=== PATIENT | male | born 1970 | race Caucasian/White ===

== ENCOUNTER 2017-08-31 06:05 | Emergency (ER) | payer MEDICARE, MEDICAID ==
[~2017-08-31] VITALS: Ht 6206.4 cm; Wt 80.6 kg
[~2017-08-31 06:05] MED LIST: CELE200C PO; DIVA-81 PO; HYDR-3686 PO; LOPE2CAP PO; MIRT45TA6 PO; OMEP20CA10 PO; RISP2TAB97 PO; TERB250T85 PO; [UNRECOGNIZED DRUG - OTHER] INJ
[2017-08-31 06:34] VITALS: BP 126/88
== END 2017-08-31 08:53 | disposition home or self-care (01) ==
LOC: ER 06:06
DX: S60.221A Contusion of right hand, initial encounter (principal); W23.0XXA Caught, crushed, jammed, or pinched between moving objects, initial encounter; Y93.89 Activity, other specified; Y92.89 Other specified places as the place of occurrence of the external cause; Y99.8 Other external cause status
CPT/HCPCS: 73130; 99284

== ENCOUNTER 2018-06-16 19:31 | Emergency (ER) | payer MEDICARE, MEDICAID ==
[~2018-06-16] VITALS: Ht 188 cm; Wt 76.0 kg
[~2018-06-16 19:31] MED LIST changes: -MIRT45TA6 PO; +MIRT45TA83 PO
[2018-06-16 19:37] VITALS: BP 137/89
[2018-06-16] MEDS ORDERED: OMEP40CA37 PO (21:18)
[2018-06-16] MEDS ORDERED: TRIA15CR61 TOP (21:18)
[2018-06-16] MEDS ORDERED: triamcinolone acetonide 40mg/ml inj IM ONE (21:20)
== END 2018-06-16 21:47 | disposition home or self-care (01) ==
LOC: ER 19:31
DX: L40.9 Psoriasis, unspecified (principal); Z76.0 Encounter for issue of repeat prescription; G89.29 Other chronic pain; F15.90 Other stimulant use, unspecified, uncomplicated; Z90.49 Acquired absence of other specified parts of digestive tract; Z88.1 Allergy status to other antibiotic agents; Z88.2 Allergy status to sulfonamides; Z79.899 Other long term (current) drug therapy
CPT/HCPCS: 96372; 99283; J3301

== ENCOUNTER 2018-06-29 17:29 | Emergency (ER) | payer MEDICARE, MEDICAID ==
[~2018-06-29] VITALS: Ht 188 cm; Wt 70.5 kg
[~2018-06-29 17:29] MED LIST changes: +OMEP40CA37 PO; +TRIA15CR61 TOP
[2018-06-29 17:36] VITALS: BP 124/80
[2018-06-29] MEDS ORDERED: TRIA15CR61 TOP (19:00)
[2018-06-29] MEDS ORDERED: famotidine 20mg tablet PO ONE (19:10)
[2018-06-29] MEDS ORDERED: ketorolac tromethamine 15mg/ml inj. IM ONE (19:10)
== END 2018-06-29 20:07 | disposition home or self-care (01) ==
LOC: ER 17:29
DX: L85.3 Xerosis cutis (principal); L40.9 Psoriasis, unspecified; G89.29 Other chronic pain; F15.90 Other stimulant use, unspecified, uncomplicated; Z90.49 Acquired absence of other specified parts of digestive tract; Z60.2 Problems related to living alone; Z59.0 Homelessness; Z88.0 Allergy status to penicillin; Z88.2 Allergy status to sulfonamides; Z88.1 Allergy status to other antibiotic agents; Z79.2 Long term (current) use of antibiotics; Z79.899 Other long term (current) drug therapy
CPT/HCPCS: 96372; 99283; J1885

== ENCOUNTER 2018-09-14 16:58 | Emergency (ER) | payer MEDICARE, MEDICAID ==
[~2018-09-14] VITALS: Ht 185.4 cm; Wt 77.3 kg
[~2018-09-14 16:58] MED LIST changes: -OMEP40CA37 PO; -TRIA15CR61 TOP
[2018-09-14 17:07] VITALS: BP 104/69
--- NOTE | 2018-09-14 17:30 | NUR ---
PT NO IN WR
--- NOTE | 2018-09-14 17:48 | NUR ---
PT NOT IN WR
== END 2018-09-14 19:45 | disposition left against medical advice (07) ==
LOC: ER 16:58
DX: R21 Rash and other nonspecific skin eruption (principal); L98.9 Disorder of the skin and subcutaneous tissue, unspecified; Z53.21 Procedure and treatment not carried out due to patient leaving prior to being seen by health care provider

== ENCOUNTER 2018-12-19 09:48 | Emergency (ER) | payer MEDICARE, MEDICAID ==
[~2018-12-19] VITALS: Ht 188 cm; Wt 74.0 kg
[~2018-12-19 09:48] MED LIST changes: -OMEP20CA10 PO; +OMEP20CA11 PO
[2018-12-19] MEDS ORDERED: CLOB15CR11 TP (10:54)
[2018-12-19] MEDS ORDERED: FLUO15OI2 TP (10:54)
[2018-12-19] MEDS ORDERED: ketorolac tromethamine 15mg/ml inj. IM ONE (10:55)
[2018-12-19 11:34] VITALS: BP 111/75
== END 2018-12-19 11:35 | disposition home or self-care (01) ==
LOC: ER 09:49
DX: L40.9 Psoriasis, unspecified (principal); Z02.89 Encounter for other administrative examinations; R42 Dizziness and giddiness; F15.90 Other stimulant use, unspecified, uncomplicated; G89.29 Other chronic pain; F31.9 Bipolar disorder, unspecified; Z88.1 Allergy status to other antibiotic agents; Z88.2 Allergy status to sulfonamides; Z79.899 Other long term (current) drug therapy; Z59.0 Homelessness; Z60.2 Problems related to living alone
CPT/HCPCS: 96372; 99284; J1885

== ENCOUNTER 2019-01-01 17:44 | Inpatient (IN) | payer MEDICARE, MEDICAID ==
[~2019-01-01] VITALS: Ht 188 cm; Wt 79.5 kg
[~2019-01-01 17:44] MED LIST changes: +CLOB15CR11 TP
[2019-01-01] MEDS ORDERED: HYDROcodone/acetaminophen 10/325mg tab PO ONE (18:45)
--- NOTE | 2019-01-01 18:50 | NUR ---
PT TO XRAY
--- NOTE | 2019-01-01 20:48 | NUR ---
PT IS UP OUT OF BED ON THE NURSES STATIONS PHONE TALKIN WITH HIS GRANDMOTHER ON THE PHONE.
[2019-01-01] MEDS ORDERED: LOSA25TA96 PO (21:39)
[2019-01-01] MEDS ORDERED: QUET150T2 PO (21:39)
[2019-01-01] MEDS ORDERED: OMEP40CA13 PO (21:39)
[2019-01-01] MEDS ORDERED: HYDR-3686 PO (21:39)
[2019-01-01] MEDS ORDERED: BUSP15TA3 PO (21:39)
[2019-01-01] MEDS ORDERED: DIVA-81 PO (21:39)
--- NOTE | 2019-01-01 21:39 | NUR ---
PER PT, PT TOOK NIGHTTIME MEDICATIONS WHILE IN FAST TRACK WITH PRIMARY NURSE. PRIMARY NURSE NO LONGER HERE TO VERIFY OR COMPLETE NOTE.
[2019-01-01] MEDS ORDERED: nicotine 21mg patch - 24 hr TD STA (22:19)
--- NOTE | 2019-01-01 23:07 | NUR ---
PT APPEARS COMFORTABLE ON GURNEY, SO MUCH SO THAT THE ENTIRE ER CAN HEAR HIM SNORING. WILL CONTINUE TO MONITOR
[2019-01-02] MEDS ORDERED: DOXYCYCLINE 100MG CAPSULE PO STA (01:09)
--- NOTE | 2019-01-02 01:32 | NUR ---
PT REFUSED TO GIVE URINE SAMPLE OR PERFORM VISUAL ACUITY TEST. WILL CONTINUE TO MONITOR AND ATTEMPT TO OBTAIN URINE SAMPLE AND
[2019-01-02 02:19] LABS: CLARITY,URINE CLEAR (Clear); COLOR,URINE YELLOW (Yellow); GLUCOSE, URINE NEGATIVE (Neg); KETONES,URINE TRACE mg/dl (Neg); LEUKOCYTE ESTERASE ,URINE NEGATIVE (Neg); NITRITES, URINE NEGATIVE (Neg); OCCULT BLOOD,URINE SMALL (Neg); PH,URINE 5.5 (4.8-8.0); PROTEIN,URINE NEGATIVE (Neg); UA COLLECTION TYPE URINAL; UROBILINOGEN,URINE 0.2 E.U/dL (0.2-1.0)
[2019-01-02 02:35] LABS: BACTERIA,URINE NONE SEEN /HPF (Neg); MUCUS STRANDS NONE SEEN /LPF (Neg); RBC,URINE 0-2 /HPF (0-2); SQUAMOUS EPITHELIAL CELL,UR NONE SEEN /LPF (FEW); WBC,URINE NONE SEEN /HPF (0-4)
[2019-01-02 02:41] LABS: URINE AMPHETAMINE SCREEN POSITIVE (Neg); URINE BARBITUATE SCREEN NEGATIVE (Neg); URINE BENZODIAZEPINES SCREEN NEGATIVE (Neg); URINE CANNABINOID SCREEN POSITIVE (Neg); URINE COCAINE SCREEN NEGATIVE (Neg); URINE METHADONE SCREEN NEGATIVE (Neg); URINE OPIATE SCREEN POSITIVE (Neg); URINE PHENCYCLIDINE SCREEN NEGATIVE (Neg)
[2019-01-02] MEDS ORDERED: magnesium Cl slow-release 64mg tablet PO PRN (06:10)
[2019-01-02] MEDS ORDERED: potassium CL 10mEq/100ml bag 100 ML IV PRN ×2 (06:10)
[2019-01-02] MEDS ORDERED: potassium Cl 20 mEq SR tablet PO PRN ×2 (06:10)
[2019-01-02] MEDS ORDERED: acetaminophen 325mg tablet PO PRN (06:10)
[2019-01-02] MEDS ORDERED: magnesium 4gm in 100ml NS 100 ML IV PRN (06:10)
[2019-01-02] MEDS ORDERED: morphine 2 MG/ML inj. syringe IV PRN (06:10)
[2019-01-02] MEDS ORDERED: magnesium 2GM in 50ml NS 50 ML IV PRN (06:10)
[2019-01-02] MEDS ORDERED: ondansetron/PF 4mg/2ml inj IV PRN (06:10)
--- NOTE | 2019-01-02 06:45 | NUR ---
Patient in room [facility]. I have received report from JULIO CESAR Garcia and had the opportunity to ask questions and assume patient care.
[2019-01-02] MEDS: HYDROcodone/acetaminophen 5mg/325mg tablet PO PRN ×3 (06:49→19:59)
[2019-01-02 07:45] VITALS: BP 107/72
[2019-01-02] MEDS: K and/or MAG REPLACEMENT MC SCH (08:00)
[2019-01-02] MEDS: docusate sod 100mg capsule PO SCH ×2 (09:10→19:58)
[2019-01-02] MEDS ORDERED: CELE-193 PO (10:29)
[2019-01-02] MEDS ORDERED: non-formulary drug (Omeprazole (Prilosec) 1 CAP) PO SCH (12:00)
[2019-01-02] MEDS: losartan 50mg tablet PO SCH (12:07)
[2019-01-02 12:11] VITALS: BP 107/66
[2019-01-02] MEDS ORDERED: magnesium hydroxide 30ml (MOM) UD suspension PO PRN (17:35)
--- NOTE | 2019-01-02 18:25 | NUR ---
Problems reprioritized. Patient report given, questions answered & plan of care reviewed with Jonelle Pearl RN.
--- NOTE | 2019-01-02 18:39 | NUR ---
Patient in room [facility]. I have received report from JULIO CESAR Wolf and had the opportunity to ask questions and assume patient care. Addendum: 01/02/19 at 1840 by Ayana Hoyt RN Amended: Links added.
[2019-01-02 19:00] VITALS: BP 119/78
[2019-01-02] MEDS: divalproex sod 250mg ER (24-hour) tablet PO SCH (19:58)
[2019-01-02] MEDS: busPIRone 15mg tablet PO SCH (19:58)
[2019-01-02] MEDS ORDERED: QUEtiapine 25mg tablet PO SCH (21:00)
[2019-01-02] MEDS ORDERED: QUETIAPINE 150 MG TAB.SR.24H PO SCH (21:00)
[2019-01-03] VITALS: BP 106/64
[2019-01-03 05:16] LABS: BASOPHILS % (AUTO) 0.5 % (0-1); EOSINOPHILS # (AUTO) 0.2 X10'3 (0-0.9); EOSINOPHILS % (AUTO) 3.3 % (0-6); HEMATOCRIT 36.9 % (42.0-52.0); HEMOGLOBIN 12.4 g/dl (14.0-17.9); LYMPHOCYTES # (AUTO) 1.6 X10'3 (1.1-4.8); LYMPHOCYTES % (AUTO) 22.9 % (21-51); MEAN CORPUSCULAR HGB CONC 33.6 g/dL (33.0-36.5); MEAN CORPUSCULAR VOLUME 89.3 FL (78-98); MEAN PLATELET VOLUME 7.4 FL (7.4-10.4); MONOCYTES # (AUTO) 0.5 X10'3 (0-0.9); MONOCYTES % (AUTO) 7.3 % (2-12); NEUTROPHILS # (AUTO) 4.7 X10'3 (1.8-7.7); PLATELET COUNT 352 X10'3 (140-440); RED BLOOD COUNT 4.13 X10'6 (4.70-6.10); RED CELL DISTRIBUTION WIDTH 15.1 % (11.5-14.5); WHITE BLOOD COUNT 7.1 X10'3 (4.5-11.0)
[2019-01-03 05:32] LABS: ALBUMIN 2.7 G/DL (3.4-5.0); ANION GAP 5 (8-16); BLOOD UREA NITROGEN 13 MG/DL (7-18); BUN/CREATININE RATIO 14.6 (5.4-32.0); CALCIUM 8.5 MG/DL (8.5-10.1); CHLORIDE 106 MMOL/L (99-107); CREATININE 0.89 MG/DL (0.60-1.10); GLUCOSE 94 MG/DL (70-104); MAGNESIUM 1.7 MG/DL (1.5-2.4); POTASSIUM 3.9 MMOL/L (3.5-5.1); SODIUM 142 MMOL/L (135-145); TOTAL CARBON DIOXIDE 31.2 MMOL/L (24-32); eGFR > 90 ML/MIN
--- NOTE | 2019-01-03 06:20 | NUR ---
Patient in room [facility]. I have received report from Jonelle Davila RN and had the opportunity to ask questions and assume patient care.
--- NOTE | 2019-01-03 06:30 | NUR ---
Problems reprioritized. Patient report given, questions answered & plan of care reviewed with JULIO CESAR Zavala. Addendum: 01/03/19 at 0631 by Ayana Hoyt RN Amended: Links added.
[2019-01-03 07:14] VITALS: BP 108/74
[2019-01-03] MEDS ORDERED: pantoprazole 40mg Tablet.DR PO SCH (07:30)
[2019-01-03] MEDS: K and/or MAG REPLACEMENT MC SCH (08:00)
[2019-01-03] MEDS: busPIRone 15mg tablet PO SCH (08:34)
[2019-01-03] MEDS: divalproex sod 250mg ER (24-hour) tablet PO SCH (08:34)
[2019-01-03] MEDS: losartan 50mg tablet PO SCH (08:34)
[2019-01-03] MEDS: docusate sod 100mg capsule PO SCH (08:34)
[2019-01-03] MEDS: HYDROcodone/acetaminophen 5mg/325mg tablet PO PRN (08:37)
[2019-01-03 11:52] VITALS: BP 113/65
--- NOTE | 2019-01-03 12:20 | NUR ---
Patient discharged with all belongings. IV taken out. Home meds given back to pt from pharmacy. Tele taken off. W/C to front lobby. Pt to have taxi take him to [facility] paid for by hospital for followup on fractures.
== END 2019-01-03 12:10 | disposition home or self-care (01) | DRG 86 ==
LOC: ER 17:45 → SUR 3N 01-02 06:50
PROVIDERS: ADMIT Internal Medicine; ATTEND Internal Medicine
DX: S02.19XA Other fracture of base of skull, initial encounter for closed fracture (principal); S22.42XA Multiple fractures of ribs, left side, initial encounter for closed fracture; T79.7XXA Traumatic subcutaneous emphysema, initial encounter; S02.31XA Fracture of orbital floor, right side, initial encounter for closed fracture; S02.40CA Maxillary fracture, right side, initial encounter for closed fracture; S02.40EA Zygomatic fracture, right side, initial encounter for closed fracture; S02.2XXA Fracture of nasal bones, initial encounter for closed fracture; F17.210 Nicotine dependence, cigarettes, uncomplicated; F31.9 Bipolar disorder, unspecified; I10 Essential (primary) hypertension; K21.9 Gastro-esophageal reflux disease without esophagitis; K44.9 Diaphragmatic hernia without obstruction or gangrene; Z60.2 Problems related to living alone; F15.10 Other stimulant abuse, uncomplicated; G89.29 Other chronic pain; L40.9 Psoriasis, unspecified; M54.9 Dorsalgia, unspecified; Z79.899 Other long term (current) drug therapy; Z87.19 Personal history of other diseases of the digestive system; Z90.49 Acquired absence of other specified parts of digestive tract; Z88.1 Allergy status to other antibiotic agents; Z88.2 Allergy status to sulfonamides; Z59.0 Homelessness; V29.3XXA Motorcycle rider (driver) (passenger) injured in unspecified nontraffic accident, initial encounter; Y93.89 Activity, other specified; Y92.89 Other specified places as the place of occurrence of the external cause; Y99.8 Other external cause status
CPT/HCPCS: 36415; 70450; 71101; 71250; 72125; 80048; 80305; 81001; 83735; 85025; 87081; 99285; G0378; J2270

== ENCOUNTER 2019-02-01 20:06 | Emergency (ER) | payer MEDICARE, MEDICAID ==
[~2019-02-01] VITALS: Ht 188 cm; Wt 74.0 kg
[~2019-02-01 20:06] MED LIST changes: +BUSP15TA3 PO; +CELE-193 PO; -CELE200C PO; -CLOB15CR11 TP; -LOPE2CAP PO; +LOSA25TA96 PO; -MIRT45TA83 PO; -OMEP20CA11 PO; +OMEP40CA13 PO; +QUET150T2 PO; -RISP2TAB97 PO; -TERB250T85 PO; -[UNRECOGNIZED DRUG - OTHER] INJ
[2019-02-01 20:26] VITALS: BP 143/71
== END 2019-02-01 22:31 | disposition home or self-care (01) ==
LOC: ER 20:07
DX: S90.822A Blister (nonthermal), left foot, initial encounter (principal); S90.821A Blister (nonthermal), right foot, initial encounter; G89.29 Other chronic pain; F15.10 Other stimulant abuse, uncomplicated; Z59.0 Homelessness; Z90.49 Acquired absence of other specified parts of digestive tract; Z88.1 Allergy status to other antibiotic agents; Z88.2 Allergy status to sulfonamides; Z88.8 Allergy status to other drugs, medicaments and biological substances; Z79.899 Other long term (current) drug therapy; X58.XXXA Exposure to other specified factors, initial encounter; Y93.89 Activity, other specified; Y92.89 Other specified places as the place of occurrence of the external cause; Y99.9 Unspecified external cause status
CPT/HCPCS: 99281

== ENCOUNTER 2019-02-06 14:05 | Inpatient (IN) | payer MEDICARE, MEDICAID ==
[~2019-02-06] VITALS: Ht 188 cm; Wt 87.4 kg
[2019-02-06] MEDS ORDERED: magnesium hydroxide 30ml (MOM) UD suspension PO PRN (14:35)
[2019-02-06] MEDS ORDERED: acetaminophen 325mg tablet PO PRN (14:35)
[2019-02-06] MEDS ORDERED: loperamide 2mg capsule PO PRN (14:35)
[2019-02-06] MEDS ORDERED: OMEP-50 PO (15:02)
[2019-02-06] MEDS ORDERED: ARIP5TAB4 PO (15:06)
[2019-02-06 15:17] VITALS: BP 117/71
[2019-02-06] MEDS ORDERED: TRIA454O TOP (15:24)
--- NOTE | 2019-02-06 15:57 | NUR ---
Admit note: Pt is admitted to the unit on a 5150 for DTS and SI. He ambulates himself and is independent for all ADLs. Pt appears to have psoriasis plaques on bilateral elbows, hips, and knees and has a small wound on the pedal aspect of his left foot, by the fifth toe. Photographs were taken of this and of the pedal aspect of the right foot as well as there is a healing wound on the lateral aspect of the foot. All personal items are inventoried by brayan Church, and placed in storage for a safe keeping. Pt is pleasant and cooperative with the assessment with some initial outbursts of foul language and anger. Pt was, however, redirectable and apologized for his behavior. Pt states that he self medicates with "crank" as a "mood stabilizer". He states that it "mellows him out" so he doesn't want to "kill someone". He states that he has been using "every day, sometimes five times a day for the last few months". Pt was positive for meth and marijuana on urine toxicology. Pt is somewhat of a poor historian regarding his current medications and responded with medications he would "like to be on". MRSA swab obtained without incident and sent to lab. During 1:1 assessment and interview, he states that he does not have a history of physical or sexual abuse. He states that his mother was "murdered 10 years ago, and i am going to find the berny who did it and kill him". He states that he does not know about his father and only that "he was a drug dealer". He states that he has a past medical history of arthritis and psoriasis, Bipolar disorder, schizophrenia, "anger-compulsive disorder", sleep apnea and HTN. Pt was oriented to the unit and states that he "just wants to rest". He is resting in bed peacefully on his left side and denies complaints at this time. Will continue to monitor this shift.
[2019-02-06 20:16] VITALS: BP 146/85
[2019-02-06] MEDS: NICOTINE POLACRILEX 2 MG LOZENGE MM PRN (20:40)
[2019-02-06] MEDS: LORazepam 1 MG tablet PO PRN (20:40)
[2019-02-06] MEDS: pantoprazole 40mg Tablet.DR PO SCH (20:40)
[2019-02-06] MEDS: divalproex sod 250mg ER (24-hour) tablet PO SCH (20:41)
[2019-02-06] MEDS: quetiapine 100mg tablet PO SCH (21:13)
--- NOTE | 2019-02-06 23:32 | NUR ---
Nursing Progress Note: Legal hold:5150 Client on voluntary/involuntary status for GD/DTS/DTO: DTS/DTO Report received from nurse with use of SBAR: Sergio HARRELL Why are they here: Pt was admitted to the unit and placed on a 5150 hold for suicidal ideation with a plan to overdose on heroine or cut himself with a knife. Pt states that he self medicates with "crank" as a "mood stabilizer". He states that it "mellows him out" so he doesn't want to "kill someone". He states that he has been using "every day, sometimes five times a day for the last few months". Pt was positive for meth and marijuana on urine toxicology. Assessment What has happened this shift: Pt isolates to his room, when approached he is labile and aggressive with display card writer. He demands certain medications and when display card writer explains what medications he is ordered he calls display card writer the "N word." Pt told he was not allowed to speak to staff this way which he replied yelling, "well I am trying to get help here and I can't even smoke a cigarette so I guess I should just leave here and I will shoot up some heroine into my neck!" Product Representative offered pt nicotine lozenge which he at first threw on the table but then took. Pt talks about hating the police and how they are working with [employer]. He states they are killing homeless people for fun and taking their belongings. Pt states he is hearing voices and display card writer asks what the voices are saying and he responds, "kill, kill, kill!" "I want to fucking kill someone!" Pt continues to curse and have outbursts while eating snack. PT given HS medications along with PRN ativan 1mg. S/I, H/I: "I will shoot heroine into my neck!" "I want to fucking kill someone" A/VH: reports AH Sleep: see sleep assessment notation ADL's: independent Group attendance: attends snack Were meds taken: yes Any med S/E: none reported, none observed Mental Status Exam Appearance: wears own clothing, intense expression Eye contact: direct Behavior:explosive, hostile Speech: pressured, loud Mood: mad, distressed Affect: intimidating, angry Thought process: disorganized at times Thought Content: wanting to hurt himself or others Cognition: poor Insight: poor Judgment:poor Interventions PRN's used: Ativan 1mg, nicotine lozenge Therapeutic interventions: Q15 minute safety checks, verbal deescalation, therapeutic listening, medication education Restraints/seclusion/emergency medication: NA Justification of Continued Inpatient Treatment: Pt is currently stating he is suicidal and homicidal. He has a plan to kill himself by "shooting heroin into my neck." He needs medication stabilization and crisis intervention.
[2019-02-07] MEDS: pantoprazole 40mg Tablet.DR PO SCH ×2 (07:32→20:30)
[2019-02-07] MEDS: losartan 25mg tablet PO SCH (07:32)
[2019-02-07] MEDS: divalproex sod 250mg ER (24-hour) tablet PO SCH ×2 (07:32→20:30)
[2019-02-07] MEDS: nicotine 21mg patch - 24 hr TD SCH (07:33)
[2019-02-07 08:03] LABS: CHOL/HDL RATIO 2.3 (0.00-4.99); CHOLESTEROL 138 MG/DL (0-200); HDL CHOLESTEROL 60 MG/DL (35-60); LDL CHOLESTEROL 69 MG/DL (50-100); TRIGLYCERIDES 73 MG/DL (20-135)
[2019-02-07 08:13] VITALS: BP 96/60
[2019-02-07] MEDS: triamcinolone acetonide 0.1% ointment 15gm TP SCH (08:36)
[2019-02-07] MEDS: LORazepam 1 MG tablet PO PRN ×2 (08:36→20:46)
--- NOTE | 2019-02-07 08:40 | NUR ---
Malnutrition consult. Per documented weight history patient's weight is stable in the last 9 months, no recent weight loss, no edema, eating well, 100% of meals. No malnutrition at this time. Will continue to follow per protocol. Addendum: 02/07/19 at [address] Amended: Links added.
[2019-02-07 08:43] LABS: HEMOGLOBIN A1C 5.3 % (4.5-6.2)
--- NOTE | 2019-02-07 17:00 | NUR ---
Nursing Progress Note: Legal hold:5150 Client on voluntary/involuntary status for GD/DTS/DTO: DTS/DTO Report received from nurse with use of SBAR: JULIO CESAR Shankar Why are they here: Pt was admitted to the unit and placed on a 5150 hold for suicidal ideation with a plan to overdose on heroine or cut himself with a knife. Pt states that he self medicates with "crank" as a "mood stabilizer". He states that it "mellows him out" so he doesn't want to "kill someone". He states that he has been using "every day, sometimes five times a day for the last few months". Pt was positive for meth and marijuana on urine toxicology. Assessment What has happened this shift: Pt isolates to his room and naps the majority of the day. He is cooperative with care and takes his medications without incident. He reports that he is anxious and his feet hurt and PRN tylenol and Ativan are administered with moderate effect. He does not participate in groups, however, he does eat his meals in the community room. He spilled his hot chocolate during breakfast and begins to raise his voice and cuss, however, he asks staff for a towel politely and cleans up the spill. He is seen after lunch ambulating in the thomas and talking on the phone. He asks this RN politely for a snack and this request is accomodated. He denies A/H, V/H, H/I but states "When I leave here I am going to shoot heroin in to my neck and end it" and "Everyone is out to fuck me, no one is helping me". This RN reassured Pt that he is here to get help and this is a safe environment. Pt states "yeah, we'll see about that". Will continue to monitor. S/I, H/I: "I will shoot heroine into my neck or blow my brains out"! A/VH: denies Sleep: naps throughout the day ADL's: independent Group attendance: no Were meds taken: yes Any med S/E: none reported, none observed Mental Status Exam Appearance: wears own clothing, intense expression Eye contact: direct Behavior: guarded, hostile Speech: normal, pressured and loud at times Mood: labile Affect: flat, angry at times Thought process: disorganized at times Thought Content: wanting to hurt himself or others Cognition: poor Insight: poor Judgment:poor Interventions PRN's used: Ativan 1mg, tylenol Therapeutic interventions: Q15 minute safety checks, verbal deescalation, therapeutic listening, medication education Restraints/seclusion/emergency medication: NA Justification of Continued Inpatient Treatment: Pt is currently stating he is suicidal and homicidal. He has a plan to kill himself by "shooting heroin into my neck." He needs medication stabilization and crisis intervention.
[2019-02-07 20:00] VITALS: BP 117/72
[2019-02-07] MEDS: quetiapine 100mg tablet PO SCH (20:30)
[2019-02-07] MEDS: acetaminophen 325mg tablet PO PRN (20:47)
--- NOTE | 2019-02-08 01:43 | NUR ---
NURSING PROGRESS NOTE: Legal hold: 5150 Exp 02/09 @ 1500 Client on involuntary status DTS/DTO Report received from nurse with use of SBAR: Ge RN Why are they here: Pt was admitted to the unit and placed on a 5150 hold for suicidal ideation with a plan to overdose on heroine or cut himself with a knife. Pt states that he self medicates with "crank" as a "mood stabilizer". He states that it "mellows him out" so he doesn't want to "kill someone". He states that he has been using "every day, sometimes five times a day for the last few months". Pt was positive for meth and marijuana on urine toxicology. Assessment What has happened this shift: Pt was in bed with eyes closed at shift change, no distress noted. Pt was seen by hospitalist shortly after, then pt showered. This sign writer letterer or painter introduced self and established rapport, pt presented as slightly agitated, but cooperative. 1:1 assessment was completed at bedside. Pt reports feeling less agitated and hostile. Pt made no hostile remarks during interview or through out shift. Pt however did perseverate on how the production planner are killing the homeless. Pt also states that the "[employer], the copyright expert kids" beat up the homeless and take their belongings. Pt talks about how his mother was murdered. Pt is calm, but a little irritable during conversation. Pt states that he does feel safe here. Pt takes all medications without incident, pt requests Tylenol for bilateral foot pain and and Ativan. Tried to encourage Atarax first, but pt refused. Pt retired to bed after HS snack and is currently sleeping with no distress noted. S/I, H/I: "feeling better, but I still don't want to be here." Pt denies HI, but states they will get what's coming, because that is what we do." A/VH: Pt reports passive AH, but does not elaborate. Sleep: See sleep assessment notation ADL's: Independent Group attendance: No shift manager group, but does attend HS snack. Were meds taken: Medication compliant. Any med S/E: None reported or observed. Mental Status Exam Appearance: Clean, wears own T-shirt and green unit scrubs, showered this shift. Eye contact: Direct Behavior: Cooperative, slightly agitated, perseverating Speech: Clear, normal rate and rhythm Mood: Slightly iritable, but directable Affect: Flat Thought process: Disorganized at times Thought Content: Situational Cognition: Alert Insight: Poor Judgment: Poor Interventions PRN's used: Tylenol, Ativan Therapeutic interventions: 1:1 therapeutic assessment and listening, medication administration/education/monitoring; Q15 min safety checks. Restraints/seclusion/emergency medication: NA Justification of Continued Inpatient Treatment: Pt is currently stating he is suicidal and homicidal. He has a plan to kill himself by "shooting heroin into my neck." He needs medication stabilization and crisis intervention.
[2019-02-08 07:57] VITALS: BP 107/68
[2019-02-08] MEDS: triamcinolone acetonide 0.1% ointment 15gm TP SCH (08:00)
[2019-02-08] MEDS: QUEtiapine 25mg tablet PO SCH ×3 (08:18→17:25)
[2019-02-08] MEDS: pantoprazole 40mg Tablet.DR PO SCH ×2 (08:19→20:44)
[2019-02-08] MEDS: losartan 25mg tablet PO SCH (08:19)
[2019-02-08] MEDS: nicotine 21mg patch - 24 hr TD SCH (08:19)
[2019-02-08] MEDS: divalproex sod 250mg ER (24-hour) tablet PO SCH ×2 (08:19→20:44)
[2019-02-08] MEDS: LORazepam 1 MG tablet PO PRN ×2 (08:25→20:48)
--- NOTE | 2019-02-08 14:18 | NUR ---
[facility] CONTACT Pt signed RAFAEL to allow communication with Probation Department. SW contacted pt's assigned Officer, Romel at [phone], who reports pt is to turn self in to the [facility] for book and release. Romel reports he has placed pt in rehabilitation services 3x in past and pt recently left [facility]. Romel states pt would likely be booked and released if he were to turn himself into the snf within the next couple of days. 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
--- NOTE | 2019-02-08 17:00 | NUR ---
NURSING PROGRESS NOTE: Legal hold: 5150 Exp 02/09 @ 1500 Client on involuntary status DTS/DTO Report received from nurse with use of SBAR: JULIO CESAR Shaknar Why are they here: Pt was admitted to the unit and placed on a 5150 hold for suicidal ideation with a plan to overdose on heroine or cut himself with a knife. Pt states that he self medicates with "crank" as a "mood stabilizer". He states that it "mellows him out" so he doesn't want to "kill someone". He states that he has been using "every day, sometimes five times a day for the last few months". Pt was positive for meth and marijuana on urine toxicology. Assessment What has happened this shift: Pt. asleep at start of shift. Pt. took medications and ate all meals in the day room. 1:1 done at bedside. Pt. is impatient and agitated during assessment. Pt. reports SI without a plan. Pt. reports HI, when asked who he wants to hurt, pt. states, "the people whoe are coming after me". Pt. would not answer further questions. Pt. reports he hears voices but does not elaborate. Pt. is isolative to his room majority of the day. Pt. overheard talking with himself, pt. appears to be responding to internal stimuli. S/I, H/I: Pt. reports SI/HI without plan. When asked about HI, pt. states, "pt. states, people who are hurting people" A/VH: +AH, pt. states, voices tell me to hurt people. RN asked "Who?" Pt. states "my enemies". Pt. does not elaborate on who his enemies are. Sleep: Pt. napped throughout shift. ADL's: Independent Group attendance: No Were meds taken: Medication compliant. Any med S/E: None reported or observed. Mental Status Exam Appearance: Clean, wears own T-shirt and green unit scrubs, showered this shift. Eye contact: Direct Behavior: Cooperative, isolative, perseverating Speech: Clear, normal rate and rhythm Mood: irritable, redirectable Affect: Flat Thought process: Disorganized at times Thought Content: Situational Cognition: Alert Insight: Poor Judgment: Poor Interventions PRN's used: None Therapeutic interventions: 1:1 therapeutic assessment and listening, medication administration/education/monitoring; Q15 min safety checks. Restraints/seclusion/emergency medication: NA Justification of Continued Inpatient Treatment: Pt is currently stating he is suicidal and homicidal. He has a plan to kill himself by "shooting heroin into my neck." He needs medication stabilization and crisis intervention.
[2019-02-08] MEDS: hydrOXYzine 25 MG tablet PO PRN (19:10)
[2019-02-08] MEDS: acetaminophen 325mg tablet PO PRN (19:11)
[2019-02-08 20:00] VITALS: BP 94/58
[2019-02-08] MEDS: quetiapine 100mg tablet PO SCH (20:44)
--- NOTE | 2019-02-09 01:41 | NUR ---
NURSING PROGRESS NOTE: Legal hold: 5150 Exp 02/09 @ 1500 Client on involuntary status DTS/DTO Report received from nurse with use of SBAR: Tiago RN Why are they here: Pt was admitted to the unit and placed on a 5150 hold for suicidal ideation with a plan to overdose on heroine or cut himself with a knife. Pt states that he self medicates with "crank" as a "mood stabilizer". He states that it "mellows him out" so he doesn't want to "kill someone". He states that he has been using "every day, sometimes five times a day for the last few months". Pt was positive for meth and marijuana on urine toxicology. Assessment What has happened this shift: Pt resting in bed at shift change, no acute distress noted. Pt is labile and irritable. [facility] Mikala reported to this typewriter mechanic that pt was using the "N" word and stating "fuck those niggers, everybody is going to ." This typewriter mechanic went in and talked with patient, pt "my fucking feet hurt and nobody cares!" Pt states "I just want to !" Pt became teary-eyed. This typewriter mechanic assessed pt's feet, which are dry and cracked. Pt's feet were soaked in warm, soapy water, clean socks and some skin repair cream. "My feet feel so much better." Pt continues to endorse SI/HI, pt was redirectable this shift. Pt is medication compliant and attends HS snack. Pt is cooperative and calm the remainder of shift and retires to bed after snack. S/I, H/I: "feeling better, but I still don't want to be here." Pt denies HI, but states they will get what's coming, because that is what we do." A/VH: Pt reports passive AH, but does not elaborate. Sleep: See sleep assessment notation ADL's: Independent Group attendance: No production supervisor off shift group, but does attend HS snack. Were meds taken: Medication compliant. Any med S/E: None reported or observed. Mental Status Exam Appearance: Clean, wears own T-shirt and green unit scrubs Eye contact: Direct Behavior: Cooperative, slightly agitated, perseverating Speech: Clear, normal rate and rhythm Mood: Slightly irritable, but directable Affect: Flat Thought process: Disorganized at times Thought Content: Situational Cognition: Alert Insight: Poor Judgment: Poor Interventions PRN's used: Tylenol, Atarax, Ativan Therapeutic interventions: 1:1 therapeutic assessment and listening, medication administration/education/monitoring; Q15 min safety checks. Restraints/seclusion/emergency medication: NA Justification of Continued Inpatient Treatment: Pt is currently stating he is suicidal and homicidal. He has a plan to kill himself by "shooting heroin into my neck." He needs medication stabilization and crisis intervention.
[2019-02-09 06:11] LABS: RPR Non Reactive (Non Reactive)
[2019-02-09 07:04] LABS: HIV ANTIBODY 1&2 RAPID NON-REACTIVE (Neg)
[2019-02-09 07:13] LABS: HBSAG SCREEN Negative (Negative); HEP B CORE AB, IGM Negative (Negative); HEPATITIS C ANTIBODY <0.1 s/co ratio (0.0-0.9)
[2019-02-09 07:41] VITALS: BP 98/63
[2019-02-09] MEDS: divalproex sod 250mg ER (24-hour) tablet PO SCH ×2 (07:53→20:42)
[2019-02-09] MEDS: pantoprazole 40mg Tablet.DR PO SCH ×2 (07:54→20:41)
[2019-02-09] MEDS: QUEtiapine 25mg tablet PO SCH ×3 (07:54→17:29)
[2019-02-09] MEDS: nicotine 21mg patch - 24 hr TD SCH (07:56)
[2019-02-09] MEDS: LORazepam 1 MG tablet PO PRN ×2 (07:58→17:35)
[2019-02-09] MEDS: losartan 25mg tablet PO SCH (08:00)
[2019-02-09] MEDS: triamcinolone acetonide 0.1% ointment 15gm TP SCH (08:00)
[2019-02-09] MEDS: ibuprofen tablet 400 MG TABLET PO PRN ×2 (11:59→17:35)
--- NOTE | 2019-02-09 17:00 | NUR ---
NURSING PROGRESS NOTE: Legal hold: 5250 Client on involuntary status DTS/DTO Report received from nurse with use of SBAR: Sera RN Why are they here: Pt was admitted to the unit and placed on a 5150 hold for suicidal ideation with a plan to overdose on heroine or cut himself with a knife. Pt states that he self medicates with "crank" as a "mood stabilizer". He states that it "mellows him out" so he doesn't want to "kill someone". He states that he has been using "every day, sometimes five times a day for the last few months". Pt was positive for meth and marijuana on urine toxicology. Assessment What has happened this shift: Pt. asleep at start of shift. Pt. woken up for medications and breakfast. Pt. took all meds and all meals in community room. 1:1 done at bedside. Pt. continues to report SI without a plan and auditory hallucinations. Pt. states, the voices tell me, "I'm a piece of shit". Pt. denied wanting to hurt people today. Pt. is irritable and impatient when woken up. Pt. received Ibuprofen for foot and neck pain with good effect. Pt. attended morning group. Pt.'s feet are dry and cracked. RN attempted to do foot care but pt. refused. Pt. served 5250 paper work this evening, pt. responded, "Good, I want to stay here as long as possible". S/I, H/I: Pt. reports SI without a plan. Denies HI. A/VH: Pt. reports hearing voices that belittle him. Sleep: Pt. napped majority of shift. ADL's: Independent Group attendance: Pt. attended AM group. Were meds taken: Yes Any med S/E: None reported or observed. Mental Status Exam Appearance: Clean, wears own T-shirt and green unit scrubs Eye contact: Direct Behavior: Cooperative, agitated, impatient Speech: Clear, normal rate and rhythm Mood: irritable, but directable Affect: Flat Thought process: Disorganized at times Thought Content: Situational Cognition: Alert Insight: Poor Judgment: Poor Interventions PRN's used: Ativan Therapeutic interventions: 1:1 therapeutic assessment and listening, medication administration/education/monitoring; Q15 min safety checks. Restraints/seclusion/emergency medication: NA Justification of Continued Inpatient Treatment: Pt is currently stating he is suicidal and homicidal. He has a plan to kill himself by "shooting heroin into my neck." He needs medication stabilization and crisis intervention.
[2019-02-09 19:00] VITALS: BP 105/67
[2019-02-09] MEDS: quetiapine 100mg tablet PO SCH (20:42)
[2019-02-09] MEDS: hydrOXYzine 25 MG tablet PO PRN (20:42)
--- NOTE | 2019-02-10 02:46 | NUR ---
NURSING PROGRESS NOTE: Legal hold: 5250 Exp 02/23 @ 1500 Client on involuntary status DTS/DTO Report received from nurse with use of SBAR: Paula RN Why are they here: Pt was admitted to the unit and placed on a 5150 hold for suicidal ideation with a plan to overdose on heroine or cut himself with a knife. Pt states that he self medicates with "crank" as a "mood stabilizer". He states that it "mellows him out" so he doesn't want to "kill someone". He states that he has been using "every day, sometimes five times a day for the last few months". Pt was positive for meth and marijuana on urine toxicology. Assessment What has happened this shift: Pt sleeping in his room at shift change no acute distress noted. Pt is cooperative with vitals and 1:1 assessment. Pt's mood is improving, pt is less labile. Pt apologizes for his attitude the last couple of days. Pt passive SI, but has no plan. Pt continues to report derogatory AH. Pt remained in bed all of shift, "I am feeling real tired." Pt is up HS snack then returns to bed. S/I, H/I: Passive SI, without a plan. Denies H/I A/VH: Pt reports derogatory voices. Sleep: See sleep assessment notation ADL's: Independent Group attendance: No manufacturing shift supervisor group, but does attend HS snack. Were meds taken: Medication compliant. Any med S/E: None reported or observed. Mental Status Exam Appearance: Clean, wears own T-shirt and green unit scrubs Eye contact: Direct Behavior: Cooperative, sleepy, in bed all of shift Speech: Clear, normal rate and rhythm Mood: Improvising, less labile Affect: Flat Thought process: Disorganized at times Thought Content: Situational Cognition: Alert Insight: Poor Judgment: Poor Interventions PRN's used: Atarax Therapeutic interventions: 1:1 therapeutic assessment and listening, medication administration/education/monitoring; Q15 min safety checks. Restraints/seclusion/emergency medication: NA Justification of Continued Inpatient Treatment: Pt is depressed and DTS requiring medication management and a therapeutic milieu to interrupt current crisis.
[2019-02-10 08:00] VITALS: BP 94/58
[2019-02-10] MEDS: triamcinolone acetonide 0.1% ointment 15gm TP SCH (08:00)
[2019-02-10] MEDS: losartan 25mg tablet PO SCH (08:00)
[2019-02-10] MEDS: pantoprazole 40mg Tablet.DR PO SCH ×2 (08:03→20:57)
[2019-02-10] MEDS: nicotine 21mg patch - 24 hr TD SCH (08:03)
[2019-02-10] MEDS: divalproex sod 250mg ER (24-hour) tablet PO SCH ×2 (08:05→20:57)
[2019-02-10] MEDS: QUEtiapine 25mg tablet PO SCH ×3 (08:06→17:16)
[2019-02-10] MEDS: LORazepam 1 MG tablet PO PRN ×2 (08:30→17:20)
[2019-02-10] MEDS: ibuprofen tablet 400 MG TABLET PO PRN ×2 (08:30→20:58)
[2019-02-10] MEDS: hydrOXYzine 25 MG tablet PO PRN ×2 (12:39→20:57)
--- NOTE | 2019-02-10 17:00 | NUR ---
NURSING PROGRESS NOTE: Legal hold: 525 Exp 02/23 @ 1500 Client on involuntary status DTS/DTO Report received from nurse with use of SBAR: Emmanuelle Morley RN Why are they here: Pt was admitted to the unit and placed on a 5150 hold for suicidal ideation with a plan to overdose on heroine or cut himself with a knife. Pt states that he self medicates with "crank" as a "mood stabilizer". He states that it "mellows him out" so he doesn't want to "kill someone". He states that he has been using "every day, sometimes five times a day for the last few months". Pt was positive for meth and marijuana on urine toxicology. Assessment What has happened this shift: Pt. asleep at start of shift. Pt. took all medications and ate all meals in the community room. 1:1 assessment done at bedside. Pt. reports anxiety 01/06, depression /, SI without a plan, +AH that tell him he is worthless. Pt. refused to go to AM group, pt. states, "I can't go to group, I'm struggling with too many things right now". Pt. given Ativan for anxiety with good effect. Pt. given Ibuprofen for 810 foot pain with good effect. Pt.'s feet assessed, no S&S of infection. Pt. encouraged to keep proper hygeine. Pt. given Ativan inafternoon with good effect. Pt. given Ibuprofen for foot pain with gooed effect. Pt. less isolative today, seen out in community room socializing with other patients. S/I, H/I: Passive SI, without a plan. Denies H/I A/VH: Pt reports derogatory voices. Sleep: Pt. napped frequently on AM shift. ADL's: Independent Group attendance: No. Pt. encouraged to attend, pt. reports that he has too many worries to participate in group. Were meds taken: Medication compliant. Any med S/E: None reported or observed. Mental Status Exam Appearance: Clean, wears own T-shirt and green unit scrubs Eye contact: Direct Behavior: Cooperative, anxious, isolative Speech: Clear, normal rate and rhythm Mood: anxious Affect: Flat Thought process: disoragnized at times Thought Content: Situational Cognition: Alert Insight: Poor Judgment: Poor Interventions PRN's used: Ativan, Atarax, Ibuprofen Therapeutic interventions: 1:1 therapeutic assessment and listening, medication administration/education/monitoring; Q15 min safety checks. Restraints/seclusion/emergency medication: NA Justification of Continued Inpatient Treatment: Pt is depressed and DTS requiring medication management and a therapeutic milieu to interrupt current crisis.
[2019-02-10 19:00] VITALS: BP 92/44
[2019-02-10] MEDS: quetiapine 100mg tablet PO SCH (20:57)
--- NOTE | 2019-02-10 23:28 | NUR ---
NURSING PROGRESS NOTE: Legal hold: 5250 Exp 02/23 @ 1500 Client on involuntary status DTS/DTO Report received from nurse with use of SBAR: JOSE RAFAEL Mitchell Why are they here: Pt was admitted to the unit and placed on a 5150 hold for suicidal ideation with a plan to overdose on heroine or cut himself with a knife. Pt states that he self medicates with "crank" as a "mood stabilizer". He states that it "mellows him out" so he doesn't want to "kill someone". He states that he has been using "every day, sometimes five times a day for the last few months". Pt was positive for meth and marijuana on urine toxicology. Assessment What has happened this shift: Pt. asleep at start of shift. Woke up for snack. Pt. took all medications and ate all meals in the community room socializing with other patients. 1:1 assessment done at bedside. Pt. reports anxiety 01/06, depression 02/06, SI plan is to overdose on Heroin. ,+AH that tell him he is worthless. Pt. given Ibuprofen for 810 foot pain with good effect. Given Atarax per request for c/o anxiety. Pt. less isolative today, seen out in community room S/I, H/I: Passive SI, Plan OD on heroin. Denies H/I A/VH: Pt reports derogatory voices. Sleep: Asleep at this time. ADL's: Independent Group attendance: NA, up to group room for snack. Were meds taken: Medication compliant. Any med S/E: None reported or observed. Mental Status Exam Appearance: Clean, wears own T-shirt and green unit scrubs Eye contact: Direct Behavior: Cooperative Speech: Clear, normal rate and rhythm Mood: anxious per pt Affect: Flat Thought process: disorganized at times Thought Content: Wants to get Zanax and Klonopin ordered Cognition: Alert Insight: Poor Judgment: Poor Interventions PRN's used: Ativan, Atarax, Ibuprofen Therapeutic interventions: 1:1 therapeutic assessment and listening, medication administration/education/monitoring; Q15 min safety checks. Restraints/seclusion/emergency medication: NA Justification of Continued Inpatient Treatment: Pt is depressed and DTS requiring medication management and a therapeutic milieu to interrupt current crisis.
[2019-02-11] MEDS: hydrOXYzine 25 MG tablet PO PRN ×2 (03:48→16:55)
[2019-02-11 07:54] VITALS: BP 104/55
[2019-02-11] MEDS: divalproex sod 250mg ER (24-hour) tablet PO SCH ×2 (08:38→20:39)
[2019-02-11] MEDS: pantoprazole 40mg Tablet.DR PO SCH ×2 (08:38→20:38)
[2019-02-11] MEDS: QUEtiapine 25mg tablet PO SCH ×3 (08:38→16:54)
[2019-02-11] MEDS: losartan 25mg tablet PO SCH (08:38)
[2019-02-11] MEDS: nicotine 21mg patch - 24 hr TD SCH (08:39)
[2019-02-11] MEDS: triamcinolone acetonide 0.1% ointment 15gm TP SCH (08:40)
--- NOTE | 2019-02-11 09:34 | NUR ---
Initial: Pt PO 100% meals meeting needs. LBM 02/10. No nutrition concerns at this time. Recommend: 1. continue regular diet 2. continue bowel care 3. Weight per rx Addendum: 02/11/19 at [address] Amended: Links added.
--- NOTE | 2019-02-11 16:20 | NUR ---
NURSING PROGRESS NOTE: Legal hold: 5250 Client on involuntary status DTS/DTO Report received from nurse with use of SBAR: Sobeida Morley RN Why are they here: Pt was admitted to the unit and placed on a 5150 hold for suicidal ideation with a plan to overdose on heroine or cut himself with a knife. Pt states that he self medicates with "crank" as a "mood stabilizer". He states that it "mellows him out" so he doesn't want to "kill someone". He states that he has been using "every day, sometimes five times a day for the last few months". Pt was positive for meth and marijuana on urine toxicology. Assessment What has happened this shift: Pt. asleep at start of shift. Pt. took medications and ate all meals in the day room. 1:1 done at bedside. Pt. is impatient and agitated during assessment. Pt. reports SI without a plan. Pt. reports HI, when asked who he wants to hurt, pt. states, "the people who are coming after me". Pt. went on to speak in coded style that "You learn inside. The shot callers want to hurt him because they think I ratted someone out. Then I put a hit out on someone and ended up being debriefed." When asked to explain the references he was using, pt. became frustrated and said he was done talking. Pt. reports he hears voices but does not elaborate. Pt. is isolative to his room majority of the day. Pt. overheard talking with himself, pt. appears to be responding to internal stimuli. S/I, H/I: Pt. reports SI/HI without plan. When asked about HI, pt. states, "people who are hurting people" A/VH: +AH, pt. states, voices tell me to hurt people. RN asked "Who?" Pt. states "my enemies". Pt. does not elaborate on who his enemies are. Sleep: Pt. napped throughout shift. ADL's: Independent. Showered today. Group attendance: No Were meds taken: Medication compliant. Any med S/E: None reported or observed. Mental Status Exam Appearance: Clean. Eye contact: Direct Behavior: Cooperative, isolative, perseverating Speech: Clear, normal rate and rhythm Mood: irritable, redirectable Affect: Flat, Angers easily secondary to impatience Thought process: Disorganized at times Thought Content: Situational Cognition: Alert Insight: Poor Judgment: Poor Interventions PRN's used: None Therapeutic interventions: 1:1 therapeutic assessment and listening, medication administration/education/monitoring; Q15 min safety checks. Restraints/seclusion/emergency medication: NA Justification of Continued Inpatient Treatment: Pt is currently stating he is suicidal and homicidal. He has a plan to kill himself by "shooting heroin into my neck." He needs medication stabilization and crisis intervention.
[2019-02-11] MEDS ORDERED: quetiapine 100mg tablet PO ONE (19:35)
[2019-02-11] MEDS: ibuprofen tablet 400 MG TABLET PO PRN (19:55)
[2019-02-11 19:57] VITALS: BP 137/83
[2019-02-11] MEDS: quetiapine 100mg tablet PO SCH (20:38)
--- NOTE | 2019-02-11 22:17 | NUR ---
NURSING PROGRESS NOTE: Legal hold: 5250 Client on involuntary status DTS/DTO Report received from nurse with use of SBAR: JOSE RAFAEL Mitchell Why are they here: Pt was admitted to the unit and placed on a 5150 hold for suicidal ideation with a plan to overdose on heroine or cut himself with a knife. Pt states that he self medicates with "crank" as a "mood stabilizer". He states that it "mellows him out" so he doesn't want to "kill someone". He states that he has been using "every day, sometimes five times a day for the last few months". Pt was positive for meth and marijuana on urine toxicology. Assessment What has happened this shift: Pt. awake up in group room at start of shift. Pt agitated verbalizing frustration about his medications. "They took away my Ativan I need something for Anxiety." Clifford Omer ordered x1 100 mg Seroquel and increased HS dose. Pt. took medications. Pt continued to verbalize anger. Pt. impatient and agitated during assessment. Reported SI did not mention a plan. Pt talked at length to Grandmother on the phone able to calm self down and go to bed. S/I, H/I: Pt. reports SI/HI without plan. When asked about HI, pt. states, "people who are hurting people" A/VH: +AH, pt. vague about voices Sleep: Asleep at this time ADL's: Independent. Showered today. Group attendance: No Were meds taken: Medication compliant. Any med S/E: None reported or observed. Mental Status Exam Appearance: Clean. Eye contact: Direct Behavior: Agitated, cooperative Speech: Clear, normal rate and rhythm Mood: irritable, redirectable Affect: Flat, Angers easily secondary to impatience Thought process: Disorganized at times Thought Content: Situational Cognition: Alert Insight: Poor Judgment: Poor Interventions PRN's used: None Therapeutic interventions: 1:1 therapeutic assessment and listening, medication administration/education/monitoring; Q15 min safety checks. Restraints/seclusion/emergency medication: NA Justification of Continued Inpatient Treatment: Pt is currently stating he is suicidal and homicidal. He has a plan to kill himself by "shooting heroin into my neck." He needs medication stabilization and crisis intervention.
[2019-02-12] MEDS ORDERED: QUEtiapine 25mg tablet PO SCH (07:00)
[2019-02-12] MEDS: hydrOXYzine 25 MG tablet PO PRN (07:45)
[2019-02-12] MEDS: pantoprazole 40mg Tablet.DR PO SCH ×2 (07:45→21:01)
[2019-02-12] MEDS: losartan 25mg tablet PO SCH (07:45)
[2019-02-12] MEDS: nicotine 21mg patch - 24 hr TD SCH (07:46)
[2019-02-12] MEDS: divalproex sod 250mg ER (24-hour) tablet PO SCH ×2 (07:51→21:01)
[2019-02-12 08:00] VITALS: BP 103/68
[2019-02-12] MEDS: triamcinolone acetonide 0.1% ointment 15gm TP SCH (08:00)
[2019-02-12] MEDS ORDERED: clonazePAM 0.5mg tablet PO ONE (12:45)
[2019-02-12] MEDS ORDERED: celeCOXIB 100mg capsule PO ONE (12:55)
--- NOTE | 2019-02-12 18:02 | NUR ---
NURSING PROGRESS NOTE: Legal hold: 5250 Client on involuntary status DTS/DTO Report received from nurse with use of SBAR: JULIO CESAR Siegel Why are they here: Pt was admitted to the unit and placed on a 5150 hold for suicidal ideation with a plan to overdose on heroine or cut himself with a knife. Pt states that he self medicates with "crank" as a "mood stabilizer". He states that it "mellows him out" so he doesn't want to "kill someone". He states that he has been using "every day, sometimes five times a day for the last few months". Pt was positive for meth and marijuana on urine toxicology. Assessment What has happened this shift: Pt. asleep at start of shift. Pt. took medications and ate all meals in the community room without event. Repeated his concerns of yesterday "that I'm crawling out of my skin." Spoke at length with Dr. Em today and medication changes made. Patient expressed relief "that I'm finally getting the medications that will work for me." Maintained a low profile throughout the day. Continues to state "I wish I could . I have nothing to live for. I try to think of a reason to live but I've got none." Believes "once I get back on the street I'm a man." S/I, H/I: Pt. reports SI/HI without plan. When asked about HI, pt. states, "people who are hurting people" A/VH: +AH, pt. states, voices tell me to hurt people. RN asked "Who?" Pt. states "my enemies". Pt. does not elaborate on who his enemies are. Sleep: Pt. napped throughout shift. ADL's: Independent. Showered today. Group attendance: No Were meds taken: Medication compliant. Any med S/E: None reported or observed. Mental Status Exam Appearance: Clean. Eye contact: Direct Behavior: Cooperative, isolative, perseverating Speech: Clear, normal rate and rhythm Mood: irritable, redirectable Affect: Flat, Angers easily secondary to impatience Thought process: Disorganized at times Thought Content: Situational Cognition: Alert Insight: Poor Judgment: Poor Interventions PRN's used: None Therapeutic interventions: 1:1 therapeutic assessment and listening, medication administration/education/monitoring; Q15 min safety checks. Restraints/seclusion/emergency medication: NA Justification of Continued Inpatient Treatment: Pt is currently stating he is suicidal and homicidal. He has a plan to kill himself by "shooting heroin into my neck." He needs medication stabilization and crisis intervention.
[2019-02-12] MEDS ORDERED: tuberculin, purif. prot. deriv. 5 units/0.1ml ID ONE (19:55)
[2019-02-12 20:00] VITALS: BP 137/83
--- NOTE | 2019-02-12 20:30 | NUR ---
EMERGENCY CONTACT: Pt requested that his Grandmother Haley Abdi be listed as an Emergency contact .
[2019-02-12] MEDS: quetiapine 100mg tablet PO SCH (21:00)
[2019-02-12] MEDS: hydrOXYzine 25 MG tablet PO SCH (21:01)
[2019-02-12] MEDS: clonazePAM 0.5mg tablet PO SCH (21:02)
--- NOTE | 2019-02-12 23:12 | NUR ---
NURSING PROGRESS NOTE: Legal hold: 5250 Client on involuntary status DTS/DTO Report received from nurse with use of SBAR: Lory HARRELL Why are they here: Pt was admitted to the unit and placed on a 5150 hold for suicidal ideation with a plan to overdose on heroine or cut himself with a knife. Pt states that he self medicates with "crank" as a "mood stabilizer". He states that it "mellows him out" so he doesn't want to "kill someone". He states that he has been using "every day, sometimes five times a day for the last few months". Pt was positive for meth and marijuana on urine toxicology. Assessment What has happened this shift: Pt. Talking on phone at start of shift. In Group room interacting with other pts. Pt is popular on unit with other pts. Pt calm and cooperative with care. Educated on new med orders pt verbalized understanding. Pt concerned that he get a PPD before his associate doctor would order his medication for psoriasis. PPD Placed at 21:30. Pt also talking about need to call accounting officer to let him know he is still in here because he has a warrant. Pt thinking logical and linear and future oriented. S/I, H/I: Pt. reports SI/HI without plan. Sleep: Asleep at this time ADL's: Independent. Showered today. Group attendance: No Were meds taken: Medication compliant. Any med S/E: None reported or observed. Mental Status Exam Appearance: Clean. Eye contact: Direct Behavior: Cooperative Speech: Clear, normal rate and rhythm Mood: Pleasant cooperative Affect: Flat, Angers easily secondary to impatience Thought process: Linear Thought Content: Psoriasis medications and arrest Warrant Cognition: Alert Insight: Poor Judgment: Poor Interventions PRN's used: None Therapeutic interventions: 1:1 therapeutic assessment and listening, medication administration/education/monitoring; Q15 min safety checks. Restraints/seclusion/emergency medication: NA Justification of Continued Inpatient Treatment: Pt is currently stating he is suicidal He needs medication stabilization and crisis intervention.
[2019-02-13 08:00] VITALS: BP 120/78
[2019-02-13] MEDS: divalproex sod 250mg ER (24-hour) tablet PO SCH ×2 (08:30→20:18)
[2019-02-13] MEDS: clonazePAM 0.5mg tablet PO SCH ×2 (08:30→20:17)
[2019-02-13] MEDS: quetiapine 100mg tablet PO SCH ×2 (08:30→20:18)
[2019-02-13] MEDS: pantoprazole 40mg Tablet.DR PO SCH ×2 (08:30→20:18)
[2019-02-13] MEDS: losartan 25mg tablet PO SCH (08:31)
[2019-02-13] MEDS: celeCOXIB 100mg capsule PO SCH (08:31)
[2019-02-13] MEDS: nicotine 21mg patch - 24 hr TD SCH (08:35)
[2019-02-13] MEDS: triamcinolone acetonide 0.1% ointment 15gm TP SCH (09:45)
[2019-02-13] MEDS: hydrOXYzine 25 MG tablet PO PRN (12:52)
--- NOTE | 2019-02-13 13:52 | NUR ---
NURSING PROGRESS NOTE: Legal hold: 525 Exp 02/23 @ 1500 Client on involuntary status DTS Report received from nurse with use of SBAR: JULIO CESAR Shankar Why are they here: Pt was admitted to the unit and placed on a 5150 hold for suicidal ideation with a plan to overdose on heroine or cut himself with a knife. Pt states that he self medicates with "crank" as a "mood stabilizer". He states that it "mellows him out" so he doesn't want to "kill someone". He states that he has been using "every day, sometimes five times a day for the last few months". Pt was positive for meth and marijuana on urine toxicology. Assessment What has happened this shift: Pt rates his depression today at a 12/10, states that he doesn't want to be here anymore, endorses SI, states that he would try to kill himself but there's no way here. Pt was initially pleasant in the morning but became anxious and mildly agitated later in the shift. Given prn Atarax 50 mg at 1252. 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 Pt stated that he would rather go to halfway but then stated that when he gets out of he is not going to turn himself in, "let them find me." Pt then stated that he would run to another state. When asked if pt hears voices, he answered that yes he does, states the voices, "tell me to kill him...I got demons in my head." S/I, H/I: Passive SI and HI, no plan here A/VH: Pt reports command AH to kill people and that he has demons in his head, pt denies VH. Sleep: Slept 7.75 hours per noc shift report ADL's: Independent Group attendance: Yes Were meds taken: Yes Any med S/E: None noted or reported Mental Status Exam Appearance: Clean, edentulous Eye contact: Fair to good. Behavior: restless but cooperative Speech: Clear, normal rate and rhythm Mood: irritable, anxious, depressed, angry Affect: irritable Thought process: Paranoid, perseverative, ruminates Thought Content: perseverates on wanting to do crank and on medical office rep and their children going after homeless people, spoke of homeless friends being assassinated and women being raped by medical office rep/medical office rep' children. Cognition: A/O X 4 Insight: Poor Judgment: Poor Interventions PRN's used: Atarax 50 mg Therapeutic interventions: 1:1 assessment, active listening, positive reinforcement, medication administration/education/monitoring, Q15 min safety checks. Restraints/seclusion/emergency medication: N/A Justification of Continued Inpatient Treatment: Pt is depressed, has CAH to kill people, and is endorsing SI, he needs further crisis interruption and medication adjustment for pt safety and to prevent readmission.
[2019-02-13 20:12] VITALS: BP 110/72
[2019-02-13] MEDS: hydrOXYzine 25 MG tablet PO SCH (20:17)
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
[2019-02-14] MEDS: mag hydrox/Alum hydrox/simeth 30ml oral suspension PO PRN (03:53)
[2019-02-14] MEDS: losartan 25mg tablet PO SCH (07:48)
[2019-02-14] MEDS: pantoprazole 40mg Tablet.DR PO SCH ×2 (07:48→20:20)
[2019-02-14] MEDS: celeCOXIB 100mg capsule PO SCH (07:49)
[2019-02-14] MEDS: clonazePAM 0.5mg tablet PO SCH ×2 (07:49→20:21)
[2019-02-14] MEDS: triamcinolone acetonide 0.1% ointment 15gm TP SCH (07:49)
[2019-02-14] MEDS: quetiapine 100mg tablet PO SCH ×2 (07:49→20:21)
[2019-02-14] MEDS: nicotine 21mg patch - 24 hr TD SCH (07:52)
[2019-02-14] MEDS: hydrOXYzine 25 MG tablet PO PRN ×3 (07:54→22:21)
[2019-02-14 08:00] VITALS: BP 110/69
[2019-02-14] MEDS: divalproex sod 250mg ER (24-hour) tablet PO SCH ×2 (08:21→20:20)
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
[2019-02-14] MEDS: NICOTINE POLACRILEX 2 MG LOZENGE MM PRN ×2 (15:18→21:08)
[2019-02-14 19:51] VITALS: BP 107/64
[2019-02-14] MEDS: hydrOXYzine 25 MG tablet PO SCH (20:20)
[2019-02-14] MEDS: carbamide peroxide 15ml bottle EACH EAR SCH (21:36)
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
[2019-02-15] MEDS: celeCOXIB 100mg capsule PO SCH (07:48)
[2019-02-15] MEDS: quetiapine 100mg tablet PO SCH ×2 (07:48→20:22)
[2019-02-15] MEDS: divalproex sod 250mg ER (24-hour) tablet PO SCH ×2 (07:49→20:22)
[2019-02-15] MEDS: pantoprazole 40mg Tablet.DR PO SCH ×2 (07:50→20:22)
[2019-02-15] MEDS: clonazePAM 0.5mg tablet PO SCH ×2 (07:50→20:23)
[2019-02-15 07:53] VITALS: BP 103/62
[2019-02-15] MEDS: nicotine 21mg patch - 24 hr TD SCH (07:53)
[2019-02-15] MEDS: carbamide peroxide 15ml bottle EACH EAR SCH ×2 (07:57→20:00)
[2019-02-15] MEDS: hydrOXYzine 25 MG tablet PO PRN ×2 (07:57→15:53)
[2019-02-15] MEDS: triamcinolone acetonide 0.1% ointment 15gm TP SCH (08:01)
[2019-02-15] MEDS: NICOTINE POLACRILEX 2 MG LOZENGE MM PRN ×2 (13:32→20:03)
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
--- NOTE | 2019-02-15 19:46 | NUR ---
[facility] REFERRAL: SW completed [facility] referral for pt and left on desk for signatures from treating provider and patient. Referral will need to be faxed to [facility] and [facility] office once signed. [facility] fax: [phone]/ [facility]: [phone] Ayana Lan, Dental Equipment Repairer CATALOGUE LIBRARIAN [id number] Supervised by Robinson Yuan, [id number]
[2019-02-15 20:00] VITALS: BP 119/67
[2019-02-15] MEDS: hydrOXYzine 25 MG tablet PO SCH (20:23)
--- NOTE | 2019-02-16 05:01 | NUR ---
Nursing Progress Note: Legal hold: 5250 Exp 02/23 @ 1500 Client on involuntary status DTS Report received from nurse with use of SBAR: JULIO CESAR [place] Why are they here: Pt was admitted to the unit and placed on a 5150 hold for suicidal ideation with a plan to overdose on heroine or cut himself with a knife. Pt states that he self medicates with "crank" as a "mood stabilizer". He states that it "mellows him out" so he doesn't want to "kill someone". He states that he has been using "every day, sometimes five times a day for the last few months". Pt was positive for meth and marijuana on urine toxicology. Assessment What has happened this shift: Patient laying on his bed at the beginning of the shift reading a book. Patient received a phone call from his grandmother and became agitated during the phone call. Patient ended the phone call to calm himself and remained in his bedroom. Patient explained to this commercial loan underwriter he wants to change his ways and not be so hostile but its difficult when he's being "drilled." After calming down patient called his grandmother back and apologized and claimed to have had a pleasant conversation. Patient brought up during his med pass that he recently had broken facial bones pointing below his eye and asked to have a doctor further examine as he claims to see a solid vertical line occasionally. Patient has remained in his room the remainder of this shift. S/I, H/I: denies A/VH:denies Sleep: asleep at this time ADL's: Independent Group attendance: No groups this shift Were meds taken: Yes Any med S/E: None observed or reported Mental Status Exam Appearance: Clean, edentulous Eye contact: Fair to good. Behavior: easily frustrated though cooperative Speech: Clear, normal rate and rhythm Mood: anxious, depressed, irritable Affect: agitated Thought process: perseverative, preoccupied Thought Content: changing behavior Cognition: A/O X 4 Insight: Poor Judgment: Poor Interventions PRN's used: nicotine lozenge Therapeutic interventions: 1:1 assessment, active listening, therapeutic conversation, verbal de-escalation, redirection, positive reinforcement, medication administration/education/monitoring, pictures/documentation of areas of skin affected by psoriasis, Q15 min safety checks. Restraints/seclusion/emergency medication: N/A Justification of Continued Inpatient Treatment: Pt is anxious, easily frustrated, and depressed with SI. He needs further crisis interruption and medication adjustment for pt safety and to prevent readmission.
[2019-02-16] MEDS: divalproex sod 250mg ER (24-hour) tablet PO SCH ×2 (07:38→21:27)
[2019-02-16] MEDS: celeCOXIB 100mg capsule PO SCH (07:38)
[2019-02-16] MEDS: clonazePAM 1mg tablet PO SCH (07:38)
[2019-02-16] MEDS: pantoprazole 40mg Tablet.DR PO SCH ×2 (07:39→21:27)
[2019-02-16] MEDS: quetiapine 100mg tablet PO SCH ×2 (07:39→21:28)
[2019-02-16] MEDS: carbamide peroxide 15ml bottle EACH EAR SCH ×2 (07:40→20:00)
[2019-02-16] MEDS: nicotine 21mg patch - 24 hr TD SCH (07:40)
[2019-02-16] MEDS: hydrOXYzine 25 MG tablet PO PRN ×2 (08:13→15:46)
[2019-02-16 08:18] VITALS: BP 104/65
[2019-02-16] MEDS: triamcinolone acetonide 0.1% ointment 15gm TP SCH (10:46)
--- NOTE | 2019-02-16 15:06 | NUR ---
DISCHARGE PLANNING: DENIED BY [facility].
[2019-02-16] MEDS: NICOTINE POLACRILEX 2 MG LOZENGE MM PRN (15:46)
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
[2019-02-16] MEDS: acetaminophen 325mg tablet PO PRN (19:13)
[2019-02-16] MEDS: ibuprofen tablet 400 MG TABLET PO PRN (19:14)
[2019-02-16 20:00] VITALS: BP 109/72
[2019-02-16] MEDS: clonazePAM 0.5mg tablet PO SCH (21:28)
[2019-02-16] MEDS: hydrOXYzine 25 MG tablet PO SCH (21:28)
[2019-02-17] MEDS ORDERED: quetiapine 100mg tablet PO ONE ×2 (00:40→21:35)
--- NOTE | 2019-02-17 01:28 | NUR ---
Nursing Progress Note: Legal hold: 5250 Client on involuntary status for DTS Report received from nurse with use of SBAR: JULIO CESAR Hill Why are they here: Pt was admitted to the unit and placed on a 5150 hold for suicidal ideation with a plan to overdose on heroine or cut himself with a knife. Pt states that he self medicates with "crank" as a "mood stabilizer". He states that it "mellows him out" so he doesn't want to "kill someone". Pt. states that he has been using "every day, sometimes five times a day for the last few months". Pt was positive for meth and marijuana on urine toxicology. He was previously incarcerated X 14 years. Assessment What has happened this shift: Pt. in the Group Room sitting at a table coloring at the beginning of the shift. This teletypewriter operator introduces self and establishes rapport, pt. requests pain medication for chronic psoriasis rash throughout body and chronic neck pain, PRN pain medication administered with effectiveness. Skin at areas appears reddened, however CDI, will continue to monitor. Pt. presents as cooperative, restless, anxious, and slightly impulsive. 1:1 completed later at bedside, pt. reports passive S/I, however denies a plan at this time. He states, "I feel worthless, like I let everyone in my family down." However, he reports that he has been sober now for 10 days, and he wants to remain sober, states, "My daughter says that if I test clean after 90 days, then I can come live with her. I realize that the medications I am on now are working for me." Pt. voices some disappointment r/t be declined by [facility], but reports that he would like to attend a treatment program such as [facility], or [facility], states, "I want a more regulated program where I can't leave and re-use." He admits that he has had a drug problem since the age of [age] years old, and he is aware that this has negatively affected his relationships with his family. Pt makes some delusional statements throughout the conversation regarding believing that he is the "leader" of the homeless community in [place], and they are on a mission to "fight drugs, sex trafficking, and clean the streets." S/I, H/I: Passive S/I, no plan A/VH: None reported, does not appear to be responding to internal stimuli. Sleep: Pt. reports some restlessness, he awakens at approximately midnight reporting insomnia. This teletypewriter operator obtained 1X order for Seroquel 200mg, will continue to monitor. ADL's: Requires some re-direction from staff at times. Group attendance: Pt. reports he has been attending groups for the past several days, he identifies coping mechanisms as redirecting his thoughts and "thinking before I speak." Were meds taken: Yes Any med S/E: None Mental Status Exam Appearance: Neat and appropriately dressed in hospital attire. Edentulous Eye contact: Good Behavior: Cooperative, restless, anxious, and slightly impulsive. Speech: Soft, rapid and hyperverbal at times Mood: Pleasant, restless at times Affect: Constricted with animation Thought process: Both WNL and tangental at times, some racing thoughts, however pt. is able to be redirected. Thought Content: Thought broadcasting and some delusional statements at times. Preoccupation and phobia r/t discharge. Cognition: A&O X4 Insight: Fair Judgment: Fair Interventions PRN's used: Motrin, Tylenol, and Seroquel 200mg X1 for insomnia Therapeutic interventions: Introduced self and established rapport, established contract for safety, maintained a safe and supportive environment, provided active listening, observed behaviors and need for intervention, provided medication education, educated pt. regarding medications and the adverse effects of drug use, encouraged positive ways to cope with stress, and maintained Q 15 min safety checks. Restraints/seclusion/emergency medication: N/A Justification of Continued Inpatient Treatment: Pt. continues to be passively suicidal, he requires a safe and supportive environment.
[2019-02-17 08:00] VITALS: BP 106/66
[2019-02-17] MEDS: clonazePAM 1mg tablet PO SCH (08:01)
[2019-02-17] MEDS: divalproex sod 250mg ER (24-hour) tablet PO SCH ×2 (08:01→20:24)
[2019-02-17] MEDS: celeCOXIB 100mg capsule PO SCH (08:02)
[2019-02-17] MEDS: quetiapine 100mg tablet PO SCH ×2 (08:02→20:24)
[2019-02-17] MEDS: pantoprazole 40mg Tablet.DR PO SCH ×2 (08:02→20:24)
[2019-02-17] MEDS: hydrOXYzine 25 MG tablet PO PRN ×2 (08:15→18:01)
[2019-02-17] MEDS: nicotine 21mg patch - 24 hr TD SCH (08:16)
[2019-02-17] MEDS: triamcinolone acetonide 0.1% ointment 15gm TP SCH (08:16)
[2019-02-17] MEDS: carbamide peroxide 15ml bottle EACH EAR SCH ×2 (08:18→20:33)
[2019-02-17] MEDS: NICOTINE POLACRILEX 2 MG LOZENGE MM PRN ×2 (13:52→17:59)
--- NOTE | 2019-02-17 17:15 | NUR ---
Nursing Progress Note: Legal hold: 5250 Client on involuntary status for DTS Report received from nurse with use of SBAR: JULIO CESAR [place] Why are they here: Pt was admitted to the unit and placed on a 5150 hold for suicidal ideation with a plan to overdose on heroine or cut himself with a knife. Pt states that he self medicates with "crank" as a "mood stabilizer". He states that it "mellows him out" so he doesn't want to "kill someone". Pt. states that he has been using "every day, sometimes five times a day for the last few months". Pt was positive for meth and marijuana on urine toxicology. He was previously incarcerated X 14 years. Assessment What has happened this shift: Pt. asleep at start of shift. Pt. woken up for medications. Pt. took all medications and ate all meals in community room. 1:1 done at bedside. Pt. states, "Why should I even stay here? You are not helping me... Well, I guess you guys can help me get into rehab." Pt. is labile, becoming quickly agitated and then becoming very pleasant and friendly. Pt. is redirectable. Pt.requested a hair cut and shaved his head today with staff watch. Pt. denies SI/HI, A/V H. S/I, H/I: Denies A/VH: Denies Sleep: Denies ADL's: Independent Group attendance: Yes Were meds taken: Yes Any med S/E: None Mental Status Exam Appearance: Neat and appropriately dressed in hospital attire. Eye contact: Good Behavior: Cooperative, restless, anxious, and slightly impulsive. Pt. seen socializing with other patient. Laughing, joking. Speech: Soft, rapid and hyperverbal at times Mood: Anxious, irritable, labile, Pleasant attimes. Affect: Congruent with mood Thought process: Linear Thought Content: Focused on going to rehab. Cognition: A&O X4 Insight: Fair Judgment: Fair Interventions PRN's used: Atarax, Nicotine Therapeutic interventions: Introduced self and established rapport, established contract for safety, maintained a safe and supportive environment, provided active listening, observed behaviors and need for intervention, provided medication education, educated pt. regarding medications and the adverse effects of drug use, encouraged positive ways to cope with stress, and maintained Q 15 min safety checks. Restraints/seclusion/emergency medication: N/A Justification of Continued Inpatient Treatment: Pt. continues to be passively suicidal, he requires a safe and supportive environment.
[2019-02-17 19:00] VITALS: BP 108/63
[2019-02-17] MEDS: hydrOXYzine 25 MG tablet PO SCH (20:24)
[2019-02-17] MEDS: clonazePAM 0.5mg tablet PO SCH (20:24)
[2019-02-17] MEDS: ibuprofen tablet 400 MG TABLET PO PRN (20:25)
[2019-02-17] MEDS: acetaminophen 325mg tablet PO PRN (20:33)
--- NOTE | 2019-02-17 21:30 | NUR ---
Nursing Note: Pt. has a (MRX1 order in an hour) on ordered 200mg of HS Seroquel. However was unable to click-off and administer MRX1 dose on e-mar, so per pharmacy put in a one-time order for MRX1 dose of Seroquel at HS per pt. report of insomnia.
--- NOTE | 2019-02-18 00:26 | NUR ---
Nursing Progress Note: Legal hold: 5250 Client on involuntary status for DTS Report received from nurse with use of SBAR: JULIO CESAR Hill Why are they here: Pt was admitted to the unit and placed on a 5150 hold for suicidal ideation with a plan to overdose on heroine or cut himself with a knife. Pt states that he self medicates with "crank" as a "mood stabilizer". He states that it "mellows him out" so he doesn't want to "kill someone". Pt. states that he has been using "every day, sometimes five times a day for the last few months". Pt was positive for meth and marijuana on urine toxicology. He was previously incarcerated X 14 years. Assessment What has happened this shift: Pt. in the Group Room watching TV at the beginning of the shift, when greeted by this comic book writer he states, "I had a better day today." Pt. reports he is feeling more hopeful since Kan OSORIO put in an Email to the director of [facility]. Pt. then requests to get phone numbers out of his cell phone and his bank card to pay a bill, completed with staff assist per safety precautions. Following this, pt. on the telephone for a while and reports he spoke with his grandma and an old friend who lives in [place] who informed him that she and others are praying for him. He voiced contentment r/t this unexpected support system. Pt. denies S/I this shift, however admits that he is a little anxious regarding discharge, and is hoping to attend [facility]. Pt. states, "Out there people take advantage of my kindness, and I have to be tough." No delusional statements made this shift, however as the evening wore on, pt. appeared to become increasingly labile, restless, and slightly irritable/agitated. Pain medication administered for chronic neck pain and psoriasis rash, however r/t increased restlessness, pt. had a hard time waiting for medication to take effect. Cold packs provided for bilateral hands per psoriasis, and pictures obtained of hands and placed in chart for monitoring. Skin at areas appears reddened, however remains CDI, will endorse to AM shift. Pt. requests MRX1 dose of Seroquel at HS and an additional snack, then retreats to bed. S/I, H/I: Denies A/VH: None reported, does not appear to be responding to internal stimuli. Sleep: Pt. reports insomnia, and requests MRX1 dose of HS Seroquel, administered with effectiveness. ADL's: Requires some re-direction from staff at times. Group attendance: Pt. reports he has been attending groups for the past several days, he identifies coping mechanisms as redirecting his thoughts and "thinking before I speak." Were meds taken: Yes Any med S/E: None Mental Status Exam Appearance: Neat and appropriately dressed in hospital attire. Edentulous Eye contact: Good Behavior: Cooperative, restless, anxious, and slightly impulsive/irritable/agitated Speech: Soft, rapid and hyperverbal at times Mood: Restless, irritable/agitated at times Affect: Labile Thought process: Both WNL and tangental at times, some racing thoughts, however pt. is able to be redirected. Thought Content: Some thought broadcasting and preoccupation and phobia r/t discharge. Cognition: A&O X4 Insight: Fair Judgment: Fair Interventions PRN's used: Motrin, Tylenol, and Seroquel 200mg X1 for insomnia Therapeutic interventions: Established contract for safety, maintained a safe and supportive environment, provided active listening, observed behaviors and need for intervention, provided medication education, educated pt. regarding medications and the adverse effects of drug use, encouraged positive ways to cope with stress, and maintained Q 15 min safety checks. Restraints/seclusion/emergency medication: N/A Justification of Continued Inpatient Treatment: Per Kan OSORIO, pt. does not have a safe discharge plan at this time and this puts him at risk for great harm, he continues to require a safe and supportive environment.
[2019-02-18] MEDS: nicotine 21mg patch - 24 hr TD SCH (07:21)
[2019-02-18] MEDS: divalproex sod 250mg ER (24-hour) tablet PO SCH ×2 (07:22→21:14)
[2019-02-18] MEDS: clonazePAM 1mg tablet PO SCH (07:22)
[2019-02-18] MEDS: celeCOXIB 100mg capsule PO SCH (07:22)
[2019-02-18] MEDS: quetiapine 100mg tablet PO SCH ×2 (07:22→21:15)
[2019-02-18] MEDS: pantoprazole 40mg Tablet.DR PO SCH ×2 (07:22→21:14)
[2019-02-18] MEDS: carbamide peroxide 15ml bottle EACH EAR SCH ×2 (08:02→20:00)
[2019-02-18] MEDS: triamcinolone acetonide 0.1% ointment 15gm TP SCH (08:02)
[2019-02-18 08:36] VITALS: BP 102/61
--- NOTE | 2019-02-18 10:06 | NUR ---
Reassessment: Pt PO 100% meals meeting needs. LBM 02/17. No nutrition concerns at this time. Recommend: 1. continue regular diet 2. continue bowel care 3. Weight per rx Addendum: 02/18/19 at [address] Amended: Links added.
[2019-02-18] MEDS: NICOTINE POLACRILEX 2 MG LOZENGE MM PRN (15:28)
[2019-02-18] MEDS: hydrOXYzine 25 MG tablet PO PRN (15:29)
[2019-02-18] MEDS: mag hydrox/Alum hydrox/simeth 30ml oral suspension PO PRN (16:44)
--- NOTE | 2019-02-18 17:50 | NUR ---
Nursing Progress Note: Legal hold: 5250 Client on involuntary status for DTS Report received from nurse with use of SBAR: JULIO CESAR [place] Why are they here: Pt was admitted to the unit and placed on a 5150 hold for suicidal ideation with a plan to overdose on heroine or cut himself with a knife. Pt states that he self medicates with "crank" as a "mood stabilizer". He states that it "mellows him out" so he doesn't want to "kill someone". Pt. states that he has been using "every day, sometimes five times a day for the last few months". Pt was positive for meth and marijuana on urine toxicology. He was previously incarcerated X 14 years. Assessment What has happened this shift: Pt. in the Group Room at beginning of shift and then seen ambulating back to his room. He is telling jokes and smiling and reports he is excited that [place] may be a possible destination when he leaves the [facility] floor. He mentioned that he spoke to an old girlfriend last night and that she "helped me remember that there are people out there who care about me". Pt. denies S/I, H/I as well as A/H and V/H. No delusional statements made this shift. He rests often throughout the day in his bed. Pictures were taken of Psoriasis rash and labeled and placed in Pt's chart. Pt reports he does not feel that the triamcinolone is providing any relief or improving his rash. Pt reported that he had an upset stomach and some nausea after lunch and PRN Maalox was provided with good relief. Pt still presents as labile, but has not been verbally or physically agressive this shift. S/I, H/I: Denies A/VH: None reported, does not appear to be responding to internal stimuli. Sleep: resting in bed often throughout the day ADL's: independent Group attendance: no Were meds taken: Yes Any med S/E: None Mental Status Exam Appearance: Neat and appropriately dressed in hospital attire. Edentulous Eye contact: Good Behavior: Cooperative, restless, anxious, and slightly impulsive/irritable/agitated Speech: Soft, rapid and hyperverbal at times Mood: depressed Affect: Labile Thought process: WNL, wants to "get out of here". Thought Content: Some thought broadcasting and preoccupation and phobia r/t discharge. Cognition: A&O X4 Insight: Fair Judgment: Fair Interventions PRN's used: Koby Lira Therapeutic interventions: Established contract for safety, maintained a safe and supportive environment, provided active listening, observed behaviors and need for intervention, provided medication education, educated pt. regarding medications and the adverse effects of drug use, encouraged positive ways to cope with stress, and maintained Q 15 min safety checks. Restraints/seclusion/emergency medication: N/A Justification of Continued Inpatient Treatment: Per Kan OSORIO, pt. does not have a safe discharge plan at this time and this puts him at risk for great harm, he continues to require a safe and supportive environment.
[2019-02-18 19:57] VITALS: BP 111/81
[2019-02-18] MEDS: hydrOXYzine 25 MG tablet PO SCH (21:15)
[2019-02-18] MEDS: clonazePAM 0.5mg tablet PO SCH (21:16)
[2019-02-18] MEDS: ibuprofen tablet 400 MG TABLET PO PRN (22:07)
[2019-02-18] MEDS: acetaminophen 325mg tablet PO PRN (22:07)
--- NOTE | 2019-02-18 23:34 | NUR ---
Nursing Progress Note: Legal hold: 5250 Client on involuntary status for DTS Report received from nurse with use of SBAR: JULIO CESAR [place] Why are they here: Pt was admitted to the unit and placed on a 5150 hold for suicidal ideation with a plan to overdose on heroine or cut himself with a knife. Pt states that he self medicates with "crank" as a "mood stabilizer". He states that it "mellows him out" so he doesn't want to "kill someone". Pt. states that he has been using "every day, sometimes five times a day for the last few months". Pt was positive for meth and marijuana on urine toxicology. He was previously incarcerated X 14 years. Assessment What has happened this shift: Pt in room at start of shift. Irritable when asked how he was doing said "I am sick of this place." Later pt came to group room and was more cheerful. He joked with other pts and staff. Pt looking forward to his interview with [facility] [employer] tomorrow. Pt has a plan to follow up with his MD regarding Psoriasis PRN Maalox was provided with good relief. Pt cooperative with care took all medications. Pt still presents as labile, but has not been verbally or physically aggressive this shift. S/I, H/I: Denies A/VH: None reported, does not appear to be responding to internal stimuli. Sleep: resting in bed often throughout the day ADL's: independent Group attendance: no Were meds taken: Yes Any med S/E: None Mental Status Exam Appearance: Neat and appropriately dressed in hospital attire. Edentulous Eye contact: Good Behavior: Cooperative, restless, anxious, and slightly impulsive/irritable/agitated Speech: Soft, rapid and hyperverbal at times Mood: depressed Affect: Labile Thought process: WNL, wants to "get out of here". Thought Content: discharge. Cognition: A&O X4 Insight: Fair Judgment: Fair Interventions PRN's used: Maalox, Atarax Therapeutic interventions: Established contract for safety, maintained a safe and supportive environment, provided active listening, observed behaviors and need for intervention, provided medication education, educated pt. regarding medications and the adverse effects of drug use, encouraged positive ways to cope with stress, and maintained Q 15 min safety checks. Restraints/seclusion/emergency medication: N/A Justification of Continued Inpatient Treatment: Per Kan OSORIO, pt. does not have a safe discharge plan at this time and this puts him at risk for great harm, he continues to require a safe and supportive environment.
[2019-02-19 07:32] VITALS: BP 106/60
[2019-02-19] MEDS: divalproex sod 250mg ER (24-hour) tablet PO SCH ×2 (07:51→20:59)
[2019-02-19] MEDS: quetiapine 100mg tablet PO SCH ×2 (07:51→20:58)
[2019-02-19] MEDS: celeCOXIB 100mg capsule PO SCH (07:51)
[2019-02-19] MEDS: clonazePAM 1mg tablet PO SCH (07:51)
[2019-02-19] MEDS: pantoprazole 40mg Tablet.DR PO SCH ×2 (07:51→20:59)
[2019-02-19] MEDS: hydrOXYzine 25 MG tablet PO PRN ×2 (07:55→14:04)
[2019-02-19] MEDS: carbamide peroxide 15ml bottle EACH EAR SCH ×2 (08:00→20:00)
[2019-02-19] MEDS: nicotine 21mg patch - 24 hr TD SCH (08:00)
[2019-02-19] MEDS: triamcinolone acetonide 0.1% ointment 15gm TP SCH (08:00)
--- NOTE | 2019-02-19 18:14 | NUR ---
Nursing Progress Note: Legal hold: 5250 Client on involuntary status for DTS Report received from nurse with use of SBAR: JULIO CESAR [place] Why are they here: Pt was admitted to the unit and placed on a 5150 hold for suicidal ideation with a plan to overdose on heroine or cut himself with a knife. Pt states that he self medicates with "crank" as a "mood stabilizer". He states that it "mellows him out" so he doesn't want to "kill someone". Pt. states that he has been using "every day, sometimes five times a day for the last few months". Pt was positive for meth and marijuana on urine toxicology. He was previously incarcerated X 14 years. Assessment What has happened this shift: Patient awakens irritable, demanding his psoriasis injection that he gets as an outpatient. Patient reports that he is going to file a grievance if this is not provided. Spoke with county agricultural agent who stated that we do not carry medication at this hospital. Patient verbalizes that he is having high anxiety, hydroxyzine x 2 given with good relief. Patient attends groups, med compliant. S/I, H/I: Denies A/VH: None reported. Sleep: 5.75 hrs NOC, rested during daytime. ADL's: independent Group attendance: yes Were meds taken: Yes Any med S/E: None Mental Status Exam Appearance: Neat and appropriately dressed in hospital attire. Edentulous Eye contact: Good Behavior: Cooperative, restless, anxious, and slightly impulsive/irritable/agitated Speech: Soft, rapid and hyperverbal at times Mood: depressed Affect: Labile Thought process: Linear.. Thought Content: Some thought broadcasting and preoccupation and phobia r/t discharge. Cognition: A&O X4 Insight: Fair Judgment: Fair Interventions PRN's used: Atarax x 2 Therapeutic interventions: Established contract for safety, maintained a safe and supportive environment, provided active listening, observed behaviors and need for intervention, provided medication education, educated pt. regarding medications and the adverse effects of drug use, encouraged positive ways to cope with stress, and maintained Q 15 min safety checks. Restraints/seclusion/emergency medication: N/A Justification of Continued Inpatient Treatment: Per Kan OSORIO, pt. does not have a safe discharge plan at this time and this puts him at risk for great harm, he continues to require a safe and supportive environment.
[2019-02-19 20:12] VITALS: BP 110/69
[2019-02-19] MEDS: NICOTINE POLACRILEX 2 MG LOZENGE MM PRN (20:58)
[2019-02-19] MEDS: hydrOXYzine 25 MG tablet PO SCH (20:59)
[2019-02-19] MEDS: clonazePAM 0.5mg tablet PO SCH (20:59)
--- NOTE | 2019-02-19 23:37 | NUR ---
Nursing Progress Note: Legal hold: 5250 Client on involuntary status for DTS Report received from nurse with use of SBAR: JULIO CESAR [place] Why are they here: Pt was admitted to the unit and placed on a 5150 hold for suicidal ideation with a plan to overdose on heroine or cut himself with a knife. Pt states that he self medicates with "crank" as a "mood stabilizer". He states that it "mellows him out" so he doesn't want to "kill someone". Pt. states that he has been using "every day, sometimes five times a day for the last few months". Pt was positive for meth and marijuana on urine toxicology. He was previously incarcerated X 14 years. Assessment What has happened this shift: Pty ambulating on unit mood good. Friendly joking with staff and other pts. Said he had a good day. Expecting someone to come to talk to him about [place] recovery tomorrow. Cooperative with all care Took all meds S/I, H/I: Denies A/VH: None reported. Sleep: 5.75 hrs NOC, rested during daytime. ADL's: independent Group attendance: yes Were meds taken: Yes Any med S/E: None Mental Status Exam Appearance: Neat and appropriately dressed in hospital attire. Edentulous Eye contact: Good Behavior: Cooperative, restless, anxious, and slightly impulsive/irritable/agitated Speech: Soft, rapid and hyperverbal at times Mood: depressed Affect: Labile Thought process: Linear.. Thought Content: Some thought broadcasting and preoccupation and phobia r/t discharge. Cognition: A&O X4 Insight: Fair Judgment: Fair Interventions PRN's used: Atarax x 2 Therapeutic interventions: Established contract for safety, maintained a safe and supportive environment, provided active listening, observed behaviors and need for intervention, provided medication education, educated pt. regarding medications and the adverse effects of drug use, encouraged positive ways to cope with stress, and maintained Q 15 min safety checks. Restraints/seclusion/emergency medication: N/A Justification of Continued Inpatient Treatment: Per Kan OSORIO, pt. does not have a safe discharge plan at this time and this puts him at risk for great harm, he continues to require a safe and supportive environment.
[2019-02-20] MEDS: NICOTINE POLACRILEX 2 MG LOZENGE MM PRN ×3 (04:18→20:33)
[2019-02-20] MEDS: hydrOXYzine 25 MG tablet PO PRN ×2 (04:18→12:07)
[2019-02-20 07:00] VITALS: BP 125/75
[2019-02-20] MEDS: nicotine 21mg patch - 24 hr TD SCH (07:38)
[2019-02-20] MEDS: clonazePAM 1mg tablet PO SCH (07:38)
[2019-02-20] MEDS: celeCOXIB 100mg capsule PO SCH (07:38)
[2019-02-20] MEDS: pantoprazole 40mg Tablet.DR PO SCH ×2 (07:38→20:29)
[2019-02-20] MEDS: divalproex sod 250mg ER (24-hour) tablet PO SCH ×2 (07:38→20:29)
[2019-02-20] MEDS: ibuprofen tablet 400 MG TABLET PO PRN (07:39)
[2019-02-20] MEDS: quetiapine 100mg tablet PO SCH ×2 (07:39→20:29)
[2019-02-20] MEDS: carbamide peroxide 15ml bottle EACH EAR SCH ×2 (08:43→20:00)
[2019-02-20] MEDS: triamcinolone acetonide 0.1% ointment 15gm TP SCH (08:43)
--- NOTE | 2019-02-20 11:40 | NUR ---
1:1 [facility] denied pt.
--- NOTE | 2019-02-20 11:41 | NUR ---
1:1 SS spoke with pt. pt reports he will turn himself into [facility] after discharged from [facility]
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
[2019-02-20 20:00] VITALS: BP 120/74
[2019-02-20] MEDS: clonazePAM 0.5mg tablet PO SCH (20:29)
[2019-02-20] MEDS: hydrOXYzine 25 MG tablet PO SCH (20:33)
--- NOTE | 2019-02-21 01:42 | NUR ---
Nursing Progress Note: Legal hold: 5250 Client on involuntary status for DTS Report received from nurse with use of SBAR: JULIO CESAR [place] Why are they here: Pt was admitted to the unit and placed on a 5150 hold for suicidal ideation with a plan to overdose on heroine or cut himself with a knife. Pt states that he self medicates with "crank" as a "mood stabilizer". He states that it "mellows him out" so he doesn't want to "kill someone". Pt. states that he has been using "every day, sometimes five times a day for the last few months". Pt was positive for meth and marijuana on urine toxicology. He was previously incarcerated X 14 years. Assessment What has happened this shift: The patient has been up on the unit watching TV. He was cooperative with the evening assessment. He stated that he was upset earlier in the day and added that he had talked with his account officer and that he has two warrants that he needs to clear up once he is released. He stated that he is wanting to get into a recovery program after he is discharged. When asked if he felt suicidal he stated, "A little bit earlier and they are less than when before" He denies psychotic symptoms or thoughts to harm others. He stated that he is feeling irritable at times. He is requesting to have an increase in his Klonopin dose and have his Seroquel changed to 300mg at HS and he was encouraged to bring it up with this psychiatric provider. He denies problems with having low energy or decrease in his ability for focus or concentrate. He reports his appetite is good. He is wanting to have his ears re-examined and to be flushed because he feels that his hearing is decreased. S/I, H/I: Reports + SI A/VH: None reported. Sleep: ADL's: independent. Showered in the evening Group attendance: NA Were meds taken: Yes Any med S/E: None Mental Status Exam Appearance: Neat and appropriately dressed in hospital attire Eye contact: Poor. Behavior: Cooperative Speech: spontaneous Mood: depressed Affect: WNL Thought process: Linear.. Thought Content: SI Cognition: A&O X4 Insight: Poor. Judgment: Poor. Interventions PRN's used: Therapeutic interventions: Established contract for safety, maintained a safe and supportive environment, provided active listening, observed behaviors and need for intervention, provided medication education, educated pt. regarding medications and the adverse effects of drug use, encouraged positive ways to cope with stress, and maintained Q 15 min safety checks. Restraints/seclusion/emergency medication: N/A Justification of Continued Inpatient Treatment: Per Kan OSORIO, pt. does not have a safe discharge plan at this time and this puts him at risk for great harm, he continues to require a safe and supportive environment.
[2019-02-21] MEDS: hydrOXYzine 25 MG tablet PO PRN (02:50)
[2019-02-21 08:00] VITALS: BP 97/74
[2019-02-21] MEDS: carbamide peroxide 15ml bottle EACH EAR SCH (08:00)
[2019-02-21] MEDS: quetiapine 100mg tablet PO SCH (08:01)
[2019-02-21] MEDS: clonazePAM 1mg tablet PO SCH (08:01)
[2019-02-21] MEDS: pantoprazole 40mg Tablet.DR PO SCH (08:01)
[2019-02-21] MEDS: divalproex sod 250mg ER (24-hour) tablet PO SCH (08:02)
[2019-02-21] MEDS: celeCOXIB 100mg capsule PO SCH (08:03)
[2019-02-21] MEDS: triamcinolone acetonide 0.1% ointment 15gm TP SCH (08:03)
[2019-02-21] MEDS: nicotine 21mg patch - 24 hr TD SCH (08:06)
[2019-02-21] MEDS ORDERED: QUET100T33 PO (11:36)
[2019-02-21] MEDS ORDERED: LOSA25TA96 PO (11:36)
[2019-02-21] MEDS ORDERED: NICO-668 MM (11:36)
[2019-02-21] MEDS ORDERED: PANT40TA4 PO (11:36)
[2019-02-21] MEDS ORDERED: HYDR-3686 PO (11:36)
[2019-02-21] MEDS ORDERED: DIVA250T8 PO (11:36)
[2019-02-21] MEDS ORDERED: NICO-687 TD (11:36)
--- NOTE | 2019-02-21 12:36 | NUR ---
Pt refused to have pictures taken. Addendum: 02/21/19 at 1236 by Jose David Horton RN Amended: Links added.
--- NOTE | 2019-02-21 15:35 | NUR ---
Nursing Discharge Note: Pt was discharged from [facility] at 1400 with bus passes to go to probation dept and check in with his PO and adress legal issues. Medications called in to luh at Pt's request. Pt understands discharge instructions and did not need nicotine replacement. Pt's belongings and valuables were inventoried and returned by Reena [employer] Superintendent. Pt anxious about legal issues, cooperative, and has been improving since admission. Pt in no acute physical or emotional distress.
== END 2019-02-21 14:00 | disposition short-term general hospital (02) | DRG 885 ==
LOC: ADULT MH 14:05
PROVIDERS: ADMIT Psychiatry & Neurology Psychiatry; ATTEND Psychiatry & Neurology Psychiatry
DX: F31.5 Bipolar disorder, current episode depressed, severe, with psychotic features (principal); R45.851 Suicidal ideations; K21.9 Gastro-esophageal reflux disease without esophagitis; I10 Essential (primary) hypertension; R59.0 Localized enlarged lymph nodes; L40.9 Psoriasis, unspecified; M19.90 Unspecified osteoarthritis, unspecified site; F15.10 Other stimulant abuse, uncomplicated; F12.10 Cannabis abuse, uncomplicated; F19.10 Other psychoactive substance abuse, uncomplicated; F60.2 Antisocial personality disorder; F17.210 Nicotine dependence, cigarettes, uncomplicated; Z88.2 Allergy status to sulfonamides; Z88.1 Allergy status to other antibiotic agents; Z88.8 Allergy status to other drugs, medicaments and biological substances; Z79.899 Other long term (current) drug therapy; Z90.49 Acquired absence of other specified parts of digestive tract; Z59.0 Homelessness; Z80.1 Family history of malignant neoplasm of trachea, bronchus and lung; Z83.3 Family history of diabetes mellitus; Z86.14 Personal history of Methicillin resistant Staphylococcus aureus infection; Z87.19 Personal history of other diseases of the digestive system; Z91.5 Personal history of self-harm; Z71.51 Drug abuse counseling and surveillance of drug abuser
CPT/HCPCS: 36415; 71045; 80061; 83036; 86592; 86703; 86705; 86706; 86803; 87081; 87340; 99285; Z7610

== ENCOUNTER 2020-06-06 14:45 | Emergency (ER) | payer BC, MEDICAID ==
[~2020-06-06] VITALS: Ht 188 cm; Wt 81.8 kg
[~2020-06-06 14:45] MED LIST changes: -BUSP15TA3 PO; -CELE-193 PO; -DIVA-81 PO; +DIVA250T8 PO; +NICO-668 MM; +NICO-687 TD; -OMEP40CA13 PO; +PANT40TA54 PO; +QUET100T33 PO; -QUET150T2 PO; +TRIA454O TOP
[2020-06-06 15:02] VITALS: BP 120/86
== END 2020-06-06 17:30 | disposition home or self-care (01) ==
LOC: ER 14:45
DX: S63.91XA Sprain of unspecified part of right wrist and hand, initial encounter (principal); J02.9 Acute pharyngitis, unspecified; J34.89 Other specified disorders of nose and nasal sinuses; R05 Cough; Z20.822 Contact with and (suspected) exposure to COVID-19; M79.641 Pain in right hand; G89.29 Other chronic pain; F31.9 Bipolar disorder, unspecified; F15.90 Other stimulant use, unspecified, uncomplicated; Z90.89 Acquired absence of other organs; Z72.89 Other problems related to lifestyle; Z60.2 Problems related to living alone; Z59.0 Homelessness; Z88.1 Allergy status to other antibiotic agents; Z88.2 Allergy status to sulfonamides; Z88.8 Allergy status to other drugs, medicaments and biological substances; Z79.899 Other long term (current) drug therapy; X58.XXXA Exposure to other specified factors, initial encounter; Y93.89 Activity, other specified; Y92.89 Other specified places as the place of occurrence of the external cause; Y99.8 Other external cause status
CPT/HCPCS: 36415; 71045; 73130; 87635; 99284

== ENCOUNTER 2020-10-22 20:47 | Emergency (ER) | payer BC, MEDICAID ==
[~2020-10-22] VITALS: Ht 188 cm; Wt 79.5 kg
[2020-10-22] MEDS ORDERED: PANT40TA54 PO (21:53)
[2020-10-22] MEDS ORDERED: ibuprofen 200mg tablet PO ONE (22:00)
[2020-10-22 22:53] VITALS: BP 128/68
== END 2020-10-22 22:45 | disposition home or self-care (01) ==
LOC: ER 20:48
DX: K12.1 Other forms of stomatitis (principal); G89.29 Other chronic pain; F31.9 Bipolar disorder, unspecified; F15.90 Other stimulant use, unspecified, uncomplicated; Z90.89 Acquired absence of other organs; Z72.89 Other problems related to lifestyle; Z60.2 Problems related to living alone; Z59.0 Homelessness; Z88.1 Allergy status to other antibiotic agents; Z88.8 Allergy status to other drugs, medicaments and biological substances; Z79.899 Other long term (current) drug therapy
CPT/HCPCS: 99283

== ENCOUNTER 2020-12-11 14:35 | Emergency (ER) | payer BC, MEDICAID ==
[~2020-12-11] VITALS: Ht 188 cm; Wt 72.7 kg
[2020-12-11 14:59] VITALS: BP 119/82
== END 2020-12-11 15:24 | disposition home or self-care (01) ==
LOC: ER 14:35
DX: F15.10 Other stimulant abuse, uncomplicated (principal); F15.129 Other stimulant abuse with intoxication, unspecified; G89.29 Other chronic pain; F32.9 Major depressive disorder, single episode, unspecified; Z90.89 Acquired absence of other organs; Z72.89 Other problems related to lifestyle; Z60.2 Problems related to living alone; Z59.0 Homelessness; Z88.1 Allergy status to other antibiotic agents; Z88.2 Allergy status to sulfonamides; Z88.8 Allergy status to other drugs, medicaments and biological substances; Z79.899 Other long term (current) drug therapy
CPT/HCPCS: 93005; 99283

== ENCOUNTER 2021-03-13 15:59 | Emergency (ER) | payer BC, MEDICAID ==
[~2021-03-13] VITALS: Ht 188 cm; Wt 77.3 kg
[~2021-03-13 15:59] MED LIST changes: -QUET100T33 PO; +QUET100T34 PO
[2021-03-13 16:06] VITALS: BP 145/85
[2021-03-13] MEDS ORDERED: MUPI22OI30 TOP (16:22)
[2021-03-13] MEDS ORDERED: DOXY100C76 PO (16:22)
== END 2021-03-13 16:30 | disposition home or self-care (01) ==
LOC: ER 15:59
DX: S01.20XA Unspecified open wound of nose, initial encounter (principal); L01.00 Impetigo, unspecified; G89.29 Other chronic pain; F31.9 Bipolar disorder, unspecified; F15.90 Other stimulant use, unspecified, uncomplicated; Z90.89 Acquired absence of other organs; Z72.89 Other problems related to lifestyle; Z60.2 Problems related to living alone; Z59.00 Homelessness unspecified; Z88.1 Allergy status to other antibiotic agents; Z88.2 Allergy status to sulfonamides; Z88.8 Allergy status to other drugs, medicaments and biological substances; Z79.2 Long term (current) use of antibiotics; Z79.899 Other long term (current) drug therapy; X58.XXXA Exposure to other specified factors, initial encounter; Y93.89 Activity, other specified; Y92.89 Other specified places as the place of occurrence of the external cause; Y99.8 Other external cause status
CPT/HCPCS: 99283

== ENCOUNTER 2021-03-26 16:44 | Emergency (ER) | payer BC, MEDICAID ==
[~2021-03-26] VITALS: Ht 188 cm; Wt 72.7 kg
[2021-03-26 18:13] VITALS: BP 121/82
[2021-03-26] MEDS ORDERED: DOXYCYCLINE 100MG CAPSULE PO STA (22:49)
[2021-03-26] MEDS ORDERED: famotidine 20mg tablet PO ONE (22:50)
[2021-03-26] MEDS ORDERED: FAMO-128 PO ×2 (22:51→22:52)
[2021-03-26] MEDS ORDERED: DOXY-1 PO (22:51)
[2021-03-26] MEDS ORDERED: DOXY-11 PO (22:52)
[2021-03-26] MEDS ORDERED: ketorolac trometh inj. 60 MG/2 ML VIAL IM ONE (23:00)
== END 2021-03-26 23:26 | disposition home or self-care (01) ==
LOC: ER 16:44
DX: K21.9 Gastro-esophageal reflux disease without esophagitis (principal); I80.9 Phlebitis and thrombophlebitis of unspecified site; R22.31 Localized swelling, mass and lump, right upper limb; G89.29 Other chronic pain; F15.90 Other stimulant use, unspecified, uncomplicated; Z59.00 Homelessness unspecified; Z90.49 Acquired absence of other specified parts of digestive tract; Z72.89 Other problems related to lifestyle; Z88.1 Allergy status to other antibiotic agents; Z88.2 Allergy status to sulfonamides; Z88.8 Allergy status to other drugs, medicaments and biological substances; Z79.2 Long term (current) use of antibiotics; Z79.899 Other long term (current) drug therapy
CPT/HCPCS: 96372; 99283; J1885

== ENCOUNTER 2021-04-08 19:04 | Emergency (ER) | payer BC, MEDICAID ==
[~2021-04-08] VITALS: Ht 188 cm; Wt 78.5 kg
[~2021-04-08 19:04] MED LIST changes: +FAMO-128 PO
--- NOTE | 2021-04-08 19:20 | NUR ---
ORTHOSTATIC VS DONE, SITTING TO STANDING. NO ACUTE CHANGES.
[2021-04-08 20:14] LABS: BASOPHILS % (AUTO) 0.5 % (0-1); EOSINOPHILS # (AUTO) 0.3 X10'3 (0-0.9); EOSINOPHILS % (AUTO) 4.2 % (0-6); HEMATOCRIT 37.2 % (42.0-52.0); HEMOGLOBIN 12.4 g/dl (14.0-17.9); LYMPHOCYTES # (AUTO) 1.8 X10'3 (1.1-4.8); LYMPHOCYTES % (AUTO) 28.4 % (21-51); MEAN CORPUSCULAR HEMOGLOBIN 29.5 PG (27.0-31.0); MEAN CORPUSCULAR HGB CONC 33.3 g/dL (33.0-36.5); MEAN CORPUSCULAR VOLUME 88.6 FL (78-98); MEAN PLATELET VOLUME 8.5 FL (7.4-10.4); MONOCYTES # (AUTO) 0.8 X10'3 (0-0.9); MONOCYTES % (AUTO) 12.5 % (2-12); NEUTROPHILS # (AUTO) 3.4 X10'3 (1.8-7.7); NEUTROPHILS % (AUTO) 54.4 % (42-75); PLATELET COUNT 314 X10'3 (140-440); RED BLOOD COUNT 4.19 X10'6 (4.70-6.10); RED CELL DISTRIBUTION WIDTH 15.6 % (11.5-14.5); WHITE BLOOD COUNT 6.3 X10'3 (4.5-11.0)
[2021-04-08 20:16] LABS: ALANINE AMINOTRANSFERASE 20 U/L (12-78); ALBUMIN 3.3 G/DL (3.4-5.0); ALBUMIN/GLOBULIN RATIO 0.8 (1.1-1.5); ALKALINE PHOSPHATASE 82 IU/L (46-116); ANION GAP 5 (8-16); ASPARTATE AMINO TRANSFERASE 9 U/L (10-37); BILIRUBIN,TOTAL 0.1 MG/DL (0.1-1.0); BLOOD UREA NITROGEN 21 MG/DL (7-18); BUN/CREATININE RATIO 19.6 (5.4-32.0); CALCIUM 8.2 MG/DL (8.5-10.1); CHLORIDE 104 MMOL/L (99-107); CREATININE 1.07 MG/DL (0.60-1.10); GLUCOSE 99 MG/DL (70-104); POTASSIUM 4.3 MMOL/L (3.5-5.1); SODIUM 141 MMOL/L (135-145); TOTAL CARBON DIOXIDE 31.6 MMOL/L (24-32); TOTAL PROTEIN 7.4 G/DL (6.4-8.2); eGFR 74 ML/MIN
[2021-04-08] MEDS ORDERED: SUCR1TAB34 PO (22:04)
[2021-04-09 00:32] VITALS: BP 109/79
== END 2021-04-09 00:28 | disposition home or self-care (01) ==
LOC: ER 19:05
DX: K92.1 Melena (principal); R10.13 Epigastric pain; G89.29 Other chronic pain; F31.9 Bipolar disorder, unspecified; F15.90 Other stimulant use, unspecified, uncomplicated; Z90.89 Acquired absence of other organs; Z72.89 Other problems related to lifestyle; Z59.00 Homelessness unspecified; Z60.2 Problems related to living alone; Z88.2 Allergy status to sulfonamides; Z88.1 Allergy status to other antibiotic agents; Z88.8 Allergy status to other drugs, medicaments and biological substances; Z79.899 Other long term (current) drug therapy
CPT/HCPCS: 36415; 80053; 85025; 99283

== ENCOUNTER 2021-10-10 11:38 | Emergency (ER) | payer BC, MEDICAID ==
[~2021-10-10] VITALS: Ht 188 cm; Wt 77.3 kg
[~2021-10-10 11:38] MED LIST changes: +SUCR1TAB34 PO
[2021-10-10 13:00] LABS: BASOPHILS % (AUTO) 0.2 % (0-1); EOSINOPHILS % (AUTO) 0.3 % (0-6); HEMATOCRIT 45.8 % (42.0-52.0); HEMOGLOBIN 15.6 g/dl (14.0-17.9); LYMPHOCYTES # (AUTO) 1.5 X10'3 (1.1-4.8); LYMPHOCYTES % (AUTO) 12.4 % (21-51); MEAN CORPUSCULAR HEMOGLOBIN 30.9 PG (27.0-31.0); MEAN CORPUSCULAR VOLUME 91.1 FL (78-98); MEAN PLATELET VOLUME 8.2 FL (7.4-10.4); MONOCYTES # (AUTO) 1.4 X10'3 (0-0.9); MONOCYTES % (AUTO) 11.1 % (2-12); NEUTROPHILS # (AUTO) 9.3 X10'3 (1.8-7.7); PLATELET COUNT 351 X10'3 (140-440); RED BLOOD COUNT 5.03 X10'6 (4.70-6.10); RED CELL DISTRIBUTION WIDTH 13.7 % (11.5-14.5); WHITE BLOOD COUNT 12.3 X10'3 (4.5-11.0)
[2021-10-10 13:16] LABS: ALANINE AMINOTRANSFERASE 45 U/L (12-78); ALBUMIN 4.5 G/DL (3.4-5.0); ALBUMIN/GLOBULIN RATIO 1.1 (1.1-1.5); ALKALINE PHOSPHATASE 67 IU/L (46-116); ANION GAP 9 (8-16); ASPARTATE AMINO TRANSFERASE 28 U/L (10-37); BLOOD UREA NITROGEN 52 MG/DL (7-18); BUN/CREATININE RATIO 33.3 (5.4-32.0); CALCIUM 9.3 MG/DL (8.5-10.1); CHLORIDE 93 MMOL/L (99-107); CREATININE 1.56 MG/DL (0.60-1.10); GLUCOSE 134 MG/DL (70-104); LIPASE < 50 U/L (73-393); SODIUM 136 MMOL/L (135-145); TOTAL CARBON DIOXIDE 34.2 MMOL/L (24-32); TOTAL PROTEIN 8.6 G/DL (6.4-8.2); eGFR 48 ML/MIN
[2021-10-10] MEDS ORDERED: potassium CL 10mEq/100ml bag 100 ML IV ONE (13:30)
[2021-10-10] MEDS ORDERED: magnesium 2GM in 50ml NS 50 ML IV ONE (13:30)
[2021-10-10 13:50] LABS: MAGNESIUM 2.3 MG/DL (1.5-2.4)
[2021-10-10] MEDS ORDERED: famotidine/PF 10 mg/ml inj IV ONE (14:05)
[2021-10-10 15:00] VITALS: BP 131/92
== END 2021-10-10 16:00 | disposition home or self-care (01) ==
LOC: ER 11:39
DX: R11.2 Nausea with vomiting, unspecified (principal); E87.6 Hypokalemia; K44.9 Diaphragmatic hernia without obstruction or gangrene; G89.29 Other chronic pain; F31.9 Bipolar disorder, unspecified; F15.90 Other stimulant use, unspecified, uncomplicated; Z90.89 Acquired absence of other organs; Z72.89 Other problems related to lifestyle; Z60.2 Problems related to living alone; Z59.00 Homelessness unspecified; Z88.1 Allergy status to other antibiotic agents; Z88.2 Allergy status to sulfonamides; Z88.8 Allergy status to other drugs, medicaments and biological substances; Z79.899 Other long term (current) drug therapy
CPT/HCPCS: 36415; 71045; 80053; 83690; 83735; 85025; 96365; 96368; 96375; 99285; J3475; J3480; J3490

== ENCOUNTER 2021-10-11 15:50 | Inpatient (IN) | payer BC, MEDICAID ==
[~2021-10-11] VITALS: Ht 188 cm; Wt 77.3 kg
[2021-10-11] MEDS ORDERED: normal saline 1000ML IV soln IV ONE (16:05)
[2021-10-11] MEDS: diatr meglu/diatrizoate 30ml oral sol.-(3 dose) bottle PO SCH ×4 (16:05→17:49)
[2021-10-11 16:46] LABS: BASOPHILS % (AUTO) 0.3 % (0-1); EOSINOPHILS % (AUTO) 0.1 % (0-6); HEMATOCRIT 44.1 % (42.0-52.0); HEMOGLOBIN 15.3 g/dl (14.0-17.9); LYMPHOCYTES # (AUTO) 0.5 X10'3 (1.1-4.8); LYMPHOCYTES % (AUTO) 5.2 % (21-51); MEAN CORPUSCULAR HEMOGLOBIN 31.7 PG (27.0-31.0); MEAN CORPUSCULAR HGB CONC 34.8 g/dL (33.0-36.5); MEAN CORPUSCULAR VOLUME 91.1 FL (78-98); MEAN PLATELET VOLUME 8.2 FL (7.4-10.4); MONOCYTES # (AUTO) 0.9 X10'3 (0-0.9); MONOCYTES % (AUTO) 8.5 % (2-12); NEUTROPHILS # (AUTO) 8.6 X10'3 (1.8-7.7); NEUTROPHILS % (AUTO) 85.9 % (42-75); PLATELET COUNT 322 X10'3 (140-440); RED BLOOD COUNT 4.84 X10'6 (4.70-6.10); RED CELL DISTRIBUTION WIDTH 12.8 % (11.5-14.5)
[2021-10-11 16:59] LABS: ALANINE AMINOTRANSFERASE 80 U/L (12-78); ALBUMIN 3.9 G/DL (3.4-5.0); ALKALINE PHOSPHATASE 66 IU/L (46-116); ANION GAP 10 (8-16); ASPARTATE AMINO TRANSFERASE 38 U/L (10-37); BILIRUBIN,TOTAL 1.1 MG/DL (0.1-1.0); BLOOD UREA NITROGEN 45 MG/DL (7-18); BUN/CREATININE RATIO 29.6 (5.4-32.0); CALCIUM 9.4 MG/DL (8.5-10.1); CHLORIDE 91 MMOL/L (99-107); CREATININE 1.52 MG/DL (0.60-1.10); GLUCOSE 140 MG/DL (70-104); MAGNESIUM 2.3 MG/DL (1.5-2.4); SODIUM 135 MMOL/L (135-145); TOTAL CARBON DIOXIDE 34.3 MMOL/L (24-32); TOTAL PROTEIN 7.8 G/DL (6.4-8.2); eGFR 49 ML/MIN
--- NOTE | 2021-10-11 17:58 | NUR ---
Error in emar. 2nd dose contrast given about 1745, 3rd pending. Will pass on to next shift.
[2021-10-11] MEDS ORDERED: metoclopramide 5 mg/ml inj IV ONE (18:40)
--- NOTE | 2021-10-11 19:06 | NUR ---
NOTIFIED OF 4.3.
[2021-10-11] MEDS ORDERED: normal saline 1000ML IV soln IVB ONE (19:50)
[2021-10-11] MEDS ORDERED: normal saline 1000ml 1,000 ML IV ONE (20:20)
[2021-10-11 21:07] LABS: CLARITY,URINE CLEAR (Clear); COLOR,URINE YELLOW (Yellow); GLUCOSE, URINE NEGATIVE (Neg); KETONES,URINE NEGATIVE (Neg); LEUKOCYTE ESTERASE ,URINE NEGATIVE (Neg); NITRITES, URINE NEGATIVE (Neg); OCCULT BLOOD,URINE TRACE-INTACT (Neg); PH,URINE 7.5 (4.8-8.0); PROTEIN,URINE NEGATIVE (Neg); UROBILINOGEN,URINE 0.2 E.U/dL (0.2-1.0)
[2021-10-11 21:10] LABS: UA COLLECTION TYPE CLN CATCH MIDSTREAM
[2021-10-11 21:19] LABS: BACTERIA,URINE NONE SEEN /HPF (Neg); MUCUS STRANDS NONE SEEN /LPF (Neg); RBC,URINE 0-2 /HPF (0-2); SQUAMOUS EPITHELIAL CELL,UR NONE SEEN /LPF (FEW); WBC,URINE NONE SEEN /HPF (0-4)
[2021-10-11 22:16] LABS: URINE AMPHETAMINE SCREEN POSITIVE (Neg); URINE BARBITUATE SCREEN NEGATIVE (Neg); URINE BENZODIAZEPINES SCREEN NEGATIVE (Neg); URINE CANNABINOID SCREEN POSITIVE (Neg); URINE COCAINE SCREEN NEGATIVE (Neg); URINE METHADONE SCREEN NEGATIVE (Neg); URINE OPIATE SCREEN NEGATIVE (Neg); URINE PHENCYCLIDINE SCREEN NEGATIVE (Neg)
[2021-10-11] MEDS ORDERED: POTASSIUM BICARB 20meq eff tab 20 MEQ TABLET.EFF PO PRN (22:30)
[2021-10-11] MEDS ORDERED: magnesium 4gm in 100ml NS 100 ML IV PRN (22:30)
[2021-10-11] MEDS ORDERED: magnesium Cl slow-release 64mg tablet PO PRN (22:30)
[2021-10-11] MEDS: normal saline 1000ml 1,000 ML IV SCH (22:30)
[2021-10-11] MEDS ORDERED: magnesium 2GM in 50ml NS 50 ML IV PRN (22:30)
[2021-10-12 04:15] LABS: BASOPHILS % (AUTO) 0.2 % (0-1); EOSINOPHILS % (AUTO) 0.3 % (0-6); HEMATOCRIT 36.1 % (42.0-52.0); HEMOGLOBIN 12.4 g/dl (14.0-17.9); LYMPHOCYTES % (AUTO) 10.1 % (21-51); MEAN CORPUSCULAR HEMOGLOBIN 31.5 PG (27.0-31.0); MEAN CORPUSCULAR HGB CONC 34.4 g/dL (33.0-36.5); MEAN CORPUSCULAR VOLUME 91.7 FL (78-98); MONOCYTES # (AUTO) 0.6 X10'3 (0-0.9); MONOCYTES % (AUTO) 6.5 % (2-12); NEUTROPHILS # (AUTO) 8.3 X10'3 (1.8-7.7); NEUTROPHILS % (AUTO) 82.9 % (42-75); PLATELET COUNT 240 X10'3 (140-440); RED BLOOD COUNT 3.94 X10'6 (4.70-6.10); RED CELL DISTRIBUTION WIDTH 12.8 % (11.5-14.5)
[2021-10-12 04:16] LABS: ALANINE AMINOTRANSFERASE 46 U/L (12-78); ALBUMIN 2.9 G/DL (3.4-5.0); ALBUMIN/GLOBULIN RATIO 0.9 (1.1-1.5); ALKALINE PHOSPHATASE 51 IU/L (46-116); ANION GAP 4 (8-16); ASPARTATE AMINO TRANSFERASE 17 U/L (10-37); BILIRUBIN,TOTAL 0.9 MG/DL (0.1-1.0); BLOOD UREA NITROGEN 28 MG/DL (7-18); BUN/CREATININE RATIO 29.5 (5.4-32.0); CALCIUM 8.1 MG/DL (8.5-10.1); CHLORIDE 98 MMOL/L (99-107); CREATININE 0.95 MG/DL (0.60-1.10); GLUCOSE 118 MG/DL (70-104); MAGNESIUM 1.8 MG/DL (1.5-2.4); SODIUM 139 MMOL/L (135-145); TOTAL CARBON DIOXIDE 36.6 MMOL/L (24-32); TOTAL PROTEIN 6.2 G/DL (6.4-8.2); eGFR 84 ML/MIN
[2021-10-12 04:19] LABS: POTASSIUM 2.7 MMOL/L (3.5-5.1)
--- NOTE | 2021-10-12 04:23 | NUR ---
Notified Dr. Romero of critical potassium of 2.7.
[2021-10-12] MEDS: pantoprazole 40MG/NS 100ML BAG 100 ML IV SCH (04:42)
[2021-10-12] MEDS ORDERED: CYCL5TAB PO ×2 (04:52→13:02)
[2021-10-12] MEDS ORDERED: TOPI50TA24 PO (04:52)
[2021-10-12] MEDS ORDERED: CITA-109 PO (04:52)
[2021-10-12] MEDS ORDERED: ACET-1131 PO (04:52)
[2021-10-12] MEDS ORDERED: GABA300C PO (04:52)
[2021-10-12] MEDS ORDERED: FERR-39 PO (04:52)
[2021-10-12] MEDS ORDERED: ASCO500C17 PO (04:52)
[2021-10-12] MEDS: potassium CL 10mEq/100ml bag 100 ML IV PRN ×4 (05:02→14:25)
[2021-10-12] MEDS: K and/or MAG REPLACEMENT MC SCH ×2 (07:37→20:00)
[2021-10-12] MEDS: normal saline 1000ml 1,000 ML IV SCH ×2 (08:49→18:30)
[2021-10-12] MEDS: levoFLOXACIN-Levaquin 750MG/D5 150 ML IV SCH (12:25)
--- NOTE | 2021-10-12 12:28 | NUR ---
pt requires continued potassium replacement. no potassium available in the [facility]. pharmacy called and they state they will come stock it as soon as they can so replacement can continue
[2021-10-12] MEDS ORDERED: QUET300T20 PO (13:02)
[2021-10-12] MEDS ORDERED: SUCR1TAB PO (13:02)
[2021-10-12] MEDS ORDERED: PANT-47 PO (13:02)
[2021-10-12] MEDS ORDERED: IXEK80AU2 SQ (13:02)
[2021-10-12] MEDS ORDERED: ONDA4TAB12 PO (13:02)
[2021-10-12] MEDS: ondansetron/PF 4mg/2ml inj IV PRN (13:19)
[2021-10-12 19:30] VITALS: BP 112/72
[2021-10-12] MEDS: diatr meglu/diatrizoate 30ml oral sol.-(3 dose) bottle PO SCH (21:22)
[2021-10-12] MEDS: quetiapine 100mg tablet PO SCH (23:40)
[2021-10-12] MEDS: QUEtiapine 25mg tablet PO SCH (23:55)
[2021-10-12] MEDS: topiramate 25mg tablet PO SCH (23:56)
[2021-10-12] MEDS: gabapentin 300mg capsule PO SCH (23:56)
[2021-10-13] MEDS: diatr meglu/diatrizoate 30ml oral sol.-(3 dose) bottle PO SCH ×3 (00:30→10:15)
[2021-10-13] MEDS: ondansetron/PF 4mg/2ml inj IV PRN (00:54)
[2021-10-13] MEDS: cyclobenzaprine 10mg tablet PO PRN ×2 (00:54→10:17)
--- NOTE | 2021-10-13 01:19 | NUR ---
Multiple attempts to replace NG tube with no success. Pt refusing. Education provided. Pt states he would like to wait until the AM
[2021-10-13 02:38] VITALS: BP 105/68
[2021-10-13] MEDS: normal saline 1000ml 1,000 ML IV SCH ×2 (05:19→18:30)
[2021-10-13 06:00] VITALS: BP 112/70
[2021-10-13 07:05] LABS: BASOPHILS % (AUTO) 0.2 % (0-1); EOSINOPHILS # (AUTO) 0.2 X10'3 (0-0.9); EOSINOPHILS % (AUTO) 2.6 % (0-6); HEMATOCRIT 33.8 % (42.0-52.0); HEMOGLOBIN 11.5 g/dl (14.0-17.9); LYMPHOCYTES # (AUTO) 0.5 X10'3 (1.1-4.8); LYMPHOCYTES % (AUTO) 6.3 % (21-51); MEAN CORPUSCULAR HEMOGLOBIN 31.2 PG (27.0-31.0); MEAN CORPUSCULAR HGB CONC 34.1 g/dL (33.0-36.5); MEAN CORPUSCULAR VOLUME 91.5 FL (78-98); MEAN PLATELET VOLUME 8.2 FL (7.4-10.4); MONOCYTES # (AUTO) 0.8 X10'3 (0-0.9); MONOCYTES % (AUTO) 9.5 % (2-12); NEUTROPHILS # (AUTO) 6.5 X10'3 (1.8-7.7); NEUTROPHILS % (AUTO) 81.4 % (42-75); PLATELET COUNT 206 X10'3 (140-440); RED BLOOD COUNT 3.69 X10'6 (4.70-6.10); RED CELL DISTRIBUTION WIDTH 12.6 % (11.5-14.5)
[2021-10-13 07:13] LABS: ALANINE AMINOTRANSFERASE 30 U/L (12-78); ALBUMIN 2.5 G/DL (3.4-5.0); ALBUMIN/GLOBULIN RATIO 0.7 (1.1-1.5); ALKALINE PHOSPHATASE 50 IU/L (46-116); ANION GAP 8 (8-16); ASPARTATE AMINO TRANSFERASE 8 U/L (10-37); BILIRUBIN,TOTAL 0.8 MG/DL (0.1-1.0); BLOOD UREA NITROGEN 19 MG/DL (7-18); CALCIUM 7.8 MG/DL (8.5-10.1); CHLORIDE 100 MMOL/L (99-107); CREATININE 0.95 MG/DL (0.60-1.10); GLUCOSE 94 MG/DL (70-104); MAGNESIUM 1.4 MG/DL (1.5-2.4); POTASSIUM 3.2 MMOL/L (3.5-5.1); SODIUM 136 MMOL/L (135-145); TOTAL CARBON DIOXIDE 28.2 MMOL/L (24-32); TOTAL PROTEIN 5.9 G/DL (6.4-8.2); eGFR 84 ML/MIN
--- NOTE | 2021-10-13 07:44 | NUR ---
Per JULIO CESAR Chinchilla from [facility], we can do Binax Covid test for preop
[2021-10-13] MEDS: levoFLOXACIN-Levaquin 750MG/D5 150 ML IV SCH (07:49)
[2021-10-13] MEDS: K and/or MAG REPLACEMENT MC SCH ×2 (08:00→20:41)
[2021-10-13] MEDS: topiramate 25mg tablet PO SCH ×2 (08:03→20:36)
[2021-10-13] MEDS: gabapentin 300mg capsule PO SCH ×3 (08:04→20:36)
[2021-10-13] MEDS: citalopram 20mg tablet PO SCH (08:04)
[2021-10-13] MEDS: pantoprazole 40MG/NS 100ML BAG 100 ML IV SCH (10:49)
[2021-10-13 11:00] VITALS: BP 100/68
--- NOTE | 2021-10-13 12:37 | NUR ---
Patient stated he passed gas and also patient had 2 bowel movements today
--- NOTE | 2021-10-13 13:32 | NUR ---
Patient stated that Dr. Rivera came to his room today and told him that he is not going to have surgery to day but on instead. I called OR charge nurse Eren about this, he confirmed to me that Dr. Rivera also told him that the surgery scheduled moved to
[2021-10-13] MEDS: POTASSIUM BICARB 20meq eff tab 20 MEQ TABLET.EFF PO PRN ×2 (13:48→20:36)
[2021-10-13 15:00] VITALS: BP 101/50
[2021-10-13 18:00] VITALS: BP 102/61
[2021-10-13] MEDS: quetiapine 100mg tablet PO SCH (20:36)
[2021-10-13] MEDS: QUEtiapine 25mg tablet PO SCH (20:36)
[2021-10-13 22:00] VITALS: BP 106/56
[2021-10-14] MEDS: normal saline 1000ml 1,000 ML IV SCH ×3 (00:30→20:14)
[2021-10-14 02:00] VITALS: BP 115/61
[2021-10-14 07:37] VITALS: BP 127/78
[2021-10-14 07:41] LABS: BASOPHILS % (AUTO) 0.4 % (0-1); EOSINOPHILS # (AUTO) 0.3 X10'3 (0-0.9); EOSINOPHILS % (AUTO) 3.9 % (0-6); HEMATOCRIT 33.7 % (42.0-52.0); HEMOGLOBIN 11.6 g/dl (14.0-17.9); LYMPHOCYTES # (AUTO) 0.5 X10'3 (1.1-4.8); LYMPHOCYTES % (AUTO) 6.4 % (21-51); MEAN CORPUSCULAR HEMOGLOBIN 31.5 PG (27.0-31.0); MEAN CORPUSCULAR HGB CONC 34.4 g/dL (33.0-36.5); MEAN CORPUSCULAR VOLUME 91.4 FL (78-98); MEAN PLATELET VOLUME 8.3 FL (7.4-10.4); MONOCYTES # (AUTO) 0.8 X10'3 (0-0.9); MONOCYTES % (AUTO) 9.9 % (2-12); NEUTROPHILS # (AUTO) 6.1 X10'3 (1.8-7.7); NEUTROPHILS % (AUTO) 79.4 % (42-75); PLATELET COUNT 233 X10'3 (140-440); RED BLOOD COUNT 3.68 X10'6 (4.70-6.10); RED CELL DISTRIBUTION WIDTH 12.5 % (11.5-14.5); WHITE BLOOD COUNT 7.7 X10'3 (4.5-11.0)
[2021-10-14 07:57] LABS: ALANINE AMINOTRANSFERASE 22 U/L (12-78); ALBUMIN 2.4 G/DL (3.4-5.0); ALBUMIN/GLOBULIN RATIO 0.7 (1.1-1.5); ALKALINE PHOSPHATASE 49 IU/L (46-116); ANION GAP 6 (8-16); ASPARTATE AMINO TRANSFERASE 9 U/L (10-37); BILIRUBIN,TOTAL 0.3 MG/DL (0.1-1.0); BLOOD UREA NITROGEN 11 MG/DL (7-18); BUN/CREATININE RATIO 11.2 (5.4-32.0); CALCIUM 8.1 MG/DL (8.5-10.1); CHLORIDE 100 MMOL/L (99-107); CREATININE 0.98 MG/DL (0.60-1.10); GLUCOSE 99 MG/DL (70-104); MAGNESIUM 1.5 MG/DL (1.5-2.4); POTASSIUM 3.3 MMOL/L (3.5-5.1); SODIUM 131 MMOL/L (135-145); TOTAL CARBON DIOXIDE 24.7 MMOL/L (24-32); TOTAL PROTEIN 5.8 G/DL (6.4-8.2); eGFR 81 ML/MIN
[2021-10-14] MEDS: K and/or MAG REPLACEMENT MC SCH ×2 (09:02→20:00)
[2021-10-14] MEDS: pantoprazole 40MG/NS 100ML BAG 100 ML IV SCH (09:19)
[2021-10-14] MEDS: citalopram 20mg tablet PO SCH (09:20)
[2021-10-14] MEDS: topiramate 25mg tablet PO SCH ×2 (09:20→20:03)
[2021-10-14] MEDS: levoFLOXACIN-Levaquin 750MG/D5 150 ML IV SCH (09:20)
[2021-10-14] MEDS: gabapentin 300mg capsule PO SCH ×3 (09:20→20:04)
[2021-10-14 10:10] VITALS: BP 108/73
[2021-10-14] MEDS: POTASSIUM BICARB 20meq eff tab 20 MEQ TABLET.EFF PO PRN ×2 (13:20→18:00)
[2021-10-14 15:15] VITALS: BP 104/66
[2021-10-14 18:00] VITALS: BP 113/60
[2021-10-14] MEDS: QUEtiapine 25mg tablet PO SCH (20:03)
[2021-10-14] MEDS: quetiapine 100mg tablet PO SCH (20:03)
[2021-10-14 22:00] VITALS: BP 102/69
[2021-10-15] VITALS (17 sets, daily range): BP systolic 103–126; BP diastolic 69–87
[2021-10-15 05:27] LABS: ALANINE AMINOTRANSFERASE 19 U/L (12-78); ALBUMIN 2.3 G/DL (3.4-5.0); ALBUMIN/GLOBULIN RATIO 0.6 (1.1-1.5); ALKALINE PHOSPHATASE 47 IU/L (46-116); ANION GAP 2 (8-16); ASPARTATE AMINO TRANSFERASE 9 U/L (10-37); BILIRUBIN,TOTAL 0.2 MG/DL (0.1-1.0); BLOOD UREA NITROGEN 8 MG/DL (7-18); BUN/CREATININE RATIO 8.3 (5.4-32.0); CALCIUM 8.2 MG/DL (8.5-10.1); CHLORIDE 102 MMOL/L (99-107); CREATININE 0.96 MG/DL (0.60-1.10); GLUCOSE 96 MG/DL (70-104); MAGNESIUM 1.3 MG/DL (1.5-2.4); POTASSIUM 3.7 MMOL/L (3.5-5.1); SODIUM 128 MMOL/L (135-145); TOTAL CARBON DIOXIDE 24.3 MMOL/L (24-32); TOTAL PROTEIN 5.9 G/DL (6.4-8.2); eGFR 83 ML/MIN
--- NOTE | 2021-10-15 06:28 | NUR ---
Patient in room PCU 3027. I have received report from JULIO CESAR ZHOU, and had the opportunity to ask questions and assume patient care.
[2021-10-15] MEDS: normal saline 1000ml 1,000 ML IV SCH ×2 (06:30→23:03)
[2021-10-15] MEDS: K and/or MAG REPLACEMENT MC SCH ×2 (08:00→19:27)
[2021-10-15] MEDS ORDERED: predniSONE 20 mg tablet PO SCH (08:00)
[2021-10-15] MEDS ORDERED: levoFLOXACIN 750MG TABLET PO SCH (08:00)
[2021-10-15] MEDS: pantoprazole 40MG/NS 100ML BAG 100 ML IV SCH (08:15)
[2021-10-15] MEDS: citalopram 20mg tablet PO SCH (08:16)
[2021-10-15] MEDS: topiramate 25mg tablet PO SCH ×2 (08:16→21:37)
[2021-10-15] MEDS: gabapentin 300mg capsule PO SCH ×3 (08:17→21:36)
[2021-10-15 08:34] LABS: BASOPHILS % (AUTO) 0.6 % (0-1); EOSINOPHILS # (AUTO) 0.3 X10'3 (0-0.9); EOSINOPHILS % (AUTO) 4.2 % (0-6); HEMATOCRIT 37.9 % (42.0-52.0); HEMOGLOBIN 12.7 g/dl (14.0-17.9); LYMPHOCYTES # (AUTO) 0.6 X10'3 (1.1-4.8); LYMPHOCYTES % (AUTO) 8.4 % (21-51); MEAN CORPUSCULAR HEMOGLOBIN 30.8 PG (27.0-31.0); MEAN CORPUSCULAR HGB CONC 33.4 g/dL (33.0-36.5); MEAN CORPUSCULAR VOLUME 92.1 FL (78-98); MEAN PLATELET VOLUME 8.2 FL (7.4-10.4); MONOCYTES % (AUTO) 14.3 % (2-12); NEUTROPHILS # (AUTO) 4.8 X10'3 (1.8-7.7); NEUTROPHILS % (AUTO) 72.5 % (42-75); PLATELET COUNT 286 X10'3 (140-440); RED BLOOD COUNT 4.11 X10'6 (4.70-6.10); RED CELL DISTRIBUTION WIDTH 12.6 % (11.5-14.5); WHITE BLOOD COUNT 6.7 X10'3 (4.5-11.0)
--- NOTE | 2021-10-15 09:47 | NUR ---
PAGE SENT PAGER ID: [phone] MESSAGE: [id number], PATY SELBY, PT MAG 1.3, NEED ELECTROLYTE REPLACEMENT ORDER, PT NPO. THANK YOU, ELIZABETH [id number]
[2021-10-15] MEDS ORDERED: magnesium 4gm in 100ml NS 100 ML IV PRN (10:45)
[2021-10-15] MEDS ORDERED: magnesium Cl slow-release 64mg tablet PO PRN (10:45)
[2021-10-15] MEDS ORDERED: POTASSIUM BICARB 20meq eff tab 20 MEQ TABLET.EFF PO PRN ×2 (10:45)
[2021-10-15] MEDS ORDERED: magnesium 2GM in 50ml NS 50 ML IV PRN (10:45)
[2021-10-15] MEDS ORDERED: potassium CL 10mEq/100ml bag 100 ML IV PRN (10:45)
[2021-10-15 11:32] LABS: MAGNESIUM 1.3 MG/DL (1.5-2.4); POTASSIUM 3.8 MMOL/L (3.5-5.1)
[2021-10-15] MEDS ORDERED: fentaNYL /PF 50mcg/ml 5ml ampule ONE (12:46)
[2021-10-15] MEDS ORDERED: midazolam 1 mg/ML 2ml injection ONE (12:46)
[2021-10-15] MEDS ORDERED: LIDOcaine 1% 30ml preserv. free vial ONE (13:11)
[2021-10-15] MEDS ORDERED: BUPIVAcaine/PF 7.5mg/ml (0.75%) 10ml vial ONE (13:11)
[2021-10-15] MEDS ORDERED: dexamethasone sod phosphate 10mg/ml inj ONE (13:15)
[2021-10-15] MEDS ORDERED: desflurane 240ml liquid inh. IH ONE (13:15)
[2021-10-15] MEDS ORDERED: PHENYLephrine 10mg/ml 5ml injection IV ONE (13:15)
[2021-10-15] MEDS ORDERED: rocuronium 10mg/ml inj IV ONE ×2 (13:15→13:50)
[2021-10-15] MEDS ORDERED: ondansetron/PF 4mg/2ml inj IV PRN (13:25)
[2021-10-15] MEDS ORDERED: ringers solution, lacted 1,000 ML IV SCH (13:25)
[2021-10-15] MEDS ORDERED: meperidine/PF 25mg/ml syringe IV PRN ×3 (13:25)
[2021-10-15] MEDS ORDERED: morphine 4 MG/ML inj SYRINge IV PRN (13:25)
[2021-10-15] MEDS ORDERED: morphine 2 MG/ML inj. syringe IV PRN (13:25)
[2021-10-15] MEDS ORDERED: proCHLORperazine 10 MG/2 ml inj IV PRN (13:25)
[2021-10-15] MEDS ORDERED: albumin (Human) 5% 250ml 250 ML IV ONE (13:46)
[2021-10-15] MEDS ORDERED: ceFAZolin 1000mg inj ONE ×2 (13:50)
[2021-10-15] MEDS ORDERED: propofol inj 20 ML IV ONE (13:50)
[2021-10-15] MEDS ORDERED: glycopyrrolate 0.2mg/ml inj ONE (16:08)
[2021-10-15] MEDS ORDERED: neostigmine methylsulfate 1 MG/ML 10ml vial ONE (16:08)
[2021-10-15] MEDS ORDERED: HYDROmorph/NS 0.2 mg/ml PCA 100 ML IV SCH (16:10)
[2021-10-15] MEDS ORDERED: normal saline 1000ml 1,000 ML IV SCH (16:10)
[2021-10-15] MEDS ORDERED: naloxone 0.4 mg/ml inj IV PRN (16:10)
[2021-10-15] MEDS ORDERED: ondansetron/PF 4mg/2ml inj ONE (16:11)
[2021-10-15] MEDS ORDERED: acetaminophen 1,000mg/100ml IV 100 ML IV ONE (16:16)
--- NOTE | 2021-10-15 16:23 | NUR ---
Received from OR via , accompanied by Anesthesiologist DR ADKINS and report given by Anesthesiolgist. AWAKENS TO VOICE. VITALS STABLE. DRESSINGS DI. ALFONZO PAIN. ABD SOFT. BECK WITH CLEAR URINE.
--- NOTE | 2021-10-15 17:13 | NUR ---
Report called to receiving nurse. Transferred via BED Belongings . Special Issues communicated to receiving nurse.AWAKE AND ORIENTED. VITALS STABLE. NO BLEEDING OR OOZING NOTED. ALFONZO PAIN. TO PCU RM 3025A AT [facility] TIME.
--- NOTE | 2021-10-15 18:31 | NUR ---
Problems reprioritized. Patient report given, questions answered & plan of care reviewed with JULIO CESAR HELMS.
[2021-10-15] MEDS: quetiapine 100mg tablet PO SCH (21:36)
[2021-10-15] MEDS: sennosides/docusate sodium tablet PO SCH (21:36)
[2021-10-15] MEDS: QUEtiapine 25mg tablet PO SCH (21:37)
[2021-10-15] MEDS: docusate sod 100mg capsule PO SCH (21:37)
[2021-10-15] MEDS: HYDROmorph/NS 0.2 mg/ml PCA 100 ML IV SCH (23:02)
[2021-10-16] VITALS (13 sets, daily range): BP systolic 97–118; BP diastolic 70–81
--- NOTE | 2021-10-16 | NUR ---
RN noticed at beginning of shift that Pt was scheduled on HANDLE FINISHER pump for pain relief. This nurse looked all units to get a pump and tubing for hours and couldn't get one on time. During the time of looking for a pump, the nurse asked the pt if he is in pain so she can notify MD for an alternative pain med. Pt denied pain at that time and only asked for a juice. RN kept assessing pt for pain while looking for HANDLE FINISHER pump and tubing. Post-op vitals was also monitored and WNL. Right before HANDLE FINISHER was hanged, pt voiced an 8 out of 10 pain. HANDLE FINISHER now running, and pt's pain is controlled. RN will continue to monitor pt. Charge nurse, unit educator, and MD aware. 0230: Pt voiced no pain on a scale of 0-10. Vitals WNL. Pt asked for apple juice and was provided. Will continue to monitor pt.
[2021-10-16] MEDS: HYDROmorph/NS 0.2 mg/ml PCA 100 ML IV SCH ×4 (01:00→09:00)
[2021-10-16] MEDS: normal saline 1000ml 1,000 ML IV SCH (03:22)
[2021-10-16 06:37] LABS: BASOPHILS % (AUTO) 0.1 % (0-1); EOSINOPHILS % (AUTO) 0.6 % (0-6); HEMATOCRIT 33.8 % (42.0-52.0); HEMOGLOBIN 11.4 g/dl (14.0-17.9); LYMPHOCYTES # (AUTO) 0.5 X10'3 (1.1-4.8); LYMPHOCYTES % (AUTO) 5.6 % (21-51); MEAN CORPUSCULAR HEMOGLOBIN 30.9 PG (27.0-31.0); MEAN CORPUSCULAR HGB CONC 33.8 g/dL (33.0-36.5); MEAN CORPUSCULAR VOLUME 91.3 FL (78-98); MEAN PLATELET VOLUME 8.1 FL (7.4-10.4); MONOCYTES % (AUTO) 12.3 % (2-12); NEUTROPHILS # (AUTO) 6.5 X10'3 (1.8-7.7); NEUTROPHILS % (AUTO) 81.4 % (42-75); PLATELET COUNT 364 X10'3 (140-440); RED CELL DISTRIBUTION WIDTH 12.4 % (11.5-14.5)
[2021-10-16 06:49] LABS: ALANINE AMINOTRANSFERASE 34 U/L (12-78); ALBUMIN 2.5 G/DL (3.4-5.0); ALBUMIN/GLOBULIN RATIO 0.7 (1.1-1.5); ALKALINE PHOSPHATASE 48 IU/L (46-116); ANION GAP 8 (8-16); ASPARTATE AMINO TRANSFERASE 25 U/L (10-37); BILIRUBIN,TOTAL 0.2 MG/DL (0.1-1.0); BLOOD UREA NITROGEN 9 MG/DL (7-18); BUN/CREATININE RATIO 9.7 (5.4-32.0); CHLORIDE 103 MMOL/L (99-107); CREATININE 0.93 MG/DL (0.60-1.10); GLUCOSE 111 MG/DL (70-104); MAGNESIUM 1.8 MG/DL (1.5-2.4); POTASSIUM 4.4 MMOL/L (3.5-5.1); SODIUM 136 MMOL/L (135-145); TOTAL CARBON DIOXIDE 24.8 MMOL/L (24-32); TOTAL PROTEIN 6.3 G/DL (6.4-8.2); eGFR 86 ML/MIN
--- NOTE | 2021-10-16 06:53 | NUR ---
Problems reprioritized. Patient report given, JULIO CESAR Beckham, questions answered & plan of care reviewed with .
--- NOTE | 2021-10-16 07:14 | NUR ---
Problems reprioritized. Patient report given, JULIO CESAR Srinivasan, questions answered & plan of care reviewed with .
[2021-10-16] MEDS: K and/or MAG REPLACEMENT MC SCH (08:00)
[2021-10-16] MEDS: docusate sod 100mg capsule PO SCH (09:01)
[2021-10-16] MEDS: gabapentin 300mg capsule PO SCH ×3 (09:01→21:27)
[2021-10-16] MEDS: citalopram 20mg tablet PO SCH (09:01)
[2021-10-16] MEDS: enoxaparin 40mg/0.4ml syringe SQ SCH (09:03)
[2021-10-16] MEDS: pantoprazole 40MG/NS 100ML BAG 100 ML IV SCH (09:10)
[2021-10-16] MEDS: sennosides/docusate sodium tablet PO SCH (09:14)
[2021-10-16] MEDS: topiramate 25mg tablet PO SCH ×2 (09:14→21:27)
--- NOTE | 2021-10-16 15:25 | NUR ---
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 Pt s/p paraesophageal hernia repair and fundoplication yesterday advanced to full liquid diet today per EMR. Pt seen by RD for written/verbal post-min diet ed w/ RD contact information provided. RD reviewed full liquids diet, ONS recommendations, and typical diet advancement textures/modifications/restrictions once to advance past two weeks liquids-only diet per surgeon discretion. Pt declines further questions at this time. RD encouraged pt to contact dietitian's office if further questions/concerns. Pt likely to go home tomorrow per MD note. LBM 10/14 per EMR. Will continue to monitor for further nutrition intervention needs this admit. Rec: 1. continue full liquids diet per MD 2. IF pt prolonged admit; consider Ensure Enlive TIDWM to assist meeting protein/kcal needs on restrictive diet 3. bowel care per rx 4. scaled wt this admit; subsequent weekly wts Addendum: 10/16/21 at [address] Amended: Links added.
--- NOTE | 2021-10-16 17:41 | NUR ---
ASSISTANT PROFESSOR OF COMMUNICATION documentation: I have reviewed and agree with all interventions, assessments performed and documented by Percy LR LVN.
--- NOTE | 2021-10-16 18:45 | NUR ---
Patient in room PCU 3019. I have received report from Becki NOVOA and had the opportunity to ask questions and assume patient care.
[2021-10-16] MEDS: quetiapine 100mg tablet PO SCH (21:27)
[2021-10-16] MEDS: QUEtiapine 25mg tablet PO SCH (21:27)
[2021-10-16] MEDS ORDERED: PCA WASTE DOCUMENTATION MC SCH (23:30)
[2021-10-17 02:00] VITALS: BP 107/75
[2021-10-17 06:00] VITALS: BP 113/74
[2021-10-17 06:37] LABS: ALBUMIN 2.5 G/DL (3.4-5.0); ANION GAP 7 (8-16); BLOOD UREA NITROGEN 9 MG/DL (7-18); BUN/CREATININE RATIO 10.7 (5.4-32.0); CALCIUM 8.3 MG/DL (8.5-10.1); CHLORIDE 103 MMOL/L (99-107); CREATININE 0.84 MG/DL (0.60-1.10); GLUCOSE 96 MG/DL (70-104); MAGNESIUM 1.6 MG/DL (1.5-2.4); POTASSIUM 3.7 MMOL/L (3.5-5.1); SODIUM 137 MMOL/L (135-145); TOTAL CARBON DIOXIDE 26.8 MMOL/L (24-32); eGFR > 90 ML/MIN
--- NOTE | 2021-10-17 06:40 | NUR ---
Problems reprioritized. Patient report given, questions answered & plan of care reviewed with Becki NOVOA.
[2021-10-17] MEDS: citalopram 20mg tablet PO SCH (08:25)
[2021-10-17] MEDS: gabapentin 300mg capsule PO SCH ×2 (08:25→13:34)
[2021-10-17] MEDS: topiramate 25mg tablet PO SCH (08:26)
[2021-10-17] MEDS: enoxaparin 40mg/0.4ml syringe SQ SCH (08:26)
[2021-10-17] MEDS: HYDROcodone/acetaminophen 5mg/325mg tablet PO PRN ×2 (08:31→13:37)
[2021-10-17] MEDS ORDERED: HYDR-3965 PO (10:31)
[2021-10-17 11:00] VITALS: BP 115/73
--- NOTE | 2021-10-17 13:47 | NUR ---
[id number] has discharge orders, but his medications have not been finalized. Desarea ext [phone]
--- NOTE | 2021-10-17 16:12 | NUR ---
Pt has been discharged. All belonging have been gathered and patient received. All Ivs are out and telemetry box has been removed. All medications have been sent to pharmacy. Went over patients discharge and answered questions.
--- NOTE | 2021-10-17 17:47 | NUR ---
TUBE DISPATCHER documentation: I have reviewed and agree with all interventions, assessments performed and documented by SOMMER Beckham. TUBE DISPATCHER Medication Administration: For this medication-pass time frame, all medication were reviewed, dispensed, administered and documented per hospital policy by SOMMER Beckham.
== END 2021-10-17 14:34 | disposition home or self-care (01) | DRG 853 ==
LOC: ER 15:50 → ED HOLD 22:30 → UNDOADMIN 23:19 → PCU 3S 10-12 19:20
PROVIDERS: ADMIT Internal Medicine; ATTEND Family Medicine
PROC: 0D9670Z Drainage of Stomach with Drainage Device, Via Natural or Artificial Opening (ICD-10-PCS; 2021-10-11)
PROC: 0DV44ZZ Restriction of Esophagogastric Junction, Percutaneous Endoscopic Approach (ICD-10-PCS; 2021-10-15)
PROC: 8E0W4CZ Robotic Assisted Procedure of Trunk Region, Percutaneous Endoscopic Approach (ICD-10-PCS; 2021-10-15)
PROC: 0BUT4JZ Supplement Diaphragm with Synthetic Substitute, Percutaneous Endoscopic Approach (ICD-10-PCS; principal; 2021-10-15 13:15)
DX: A41.9 Sepsis, unspecified organism (principal); J18.9 Pneumonia, unspecified organism; K31.1 Adult hypertrophic pyloric stenosis; K44.0 Diaphragmatic hernia with obstruction, without gangrene; J98.11 Atelectasis; E87.6 Hypokalemia; F15.10 Other stimulant abuse, uncomplicated; Z20.822 Contact with and (suspected) exposure to COVID-19; E86.0 Dehydration; F32.A Depression, unspecified; Z60.2 Problems related to living alone; G89.29 Other chronic pain; M54.9 Dorsalgia, unspecified; R16.0 Hepatomegaly, not elsewhere classified; K57.30 Diverticulosis of large intestine without perforation or abscess without bleeding; Z79.899 Other long term (current) drug therapy; Z80.1 Family history of malignant neoplasm of trachea, bronchus and lung; Z83.3 Family history of diabetes mellitus; Z90.49 Acquired absence of other specified parts of digestive tract; Z59.00 Homelessness unspecified; Z88.2 Allergy status to sulfonamides; Z88.1 Allergy status to other antibiotic agents; Z88.8 Allergy status to other drugs, medicaments and biological substances; Z71.51 Drug abuse counseling and surveillance of drug abuser
CPT/HCPCS: 36415; 71045; 71046; 74018; 74176; 74220; 80048; 80053; 80305; 81001; 82948; 83605; 83735; 84132; 84145; 85025; 87040; 87081; 93005; 99285; A4618; A6258; C1758; C1781; C9113; G0378; J0131; J0690; J1100; J1650; J1956; J2250; J2370; J2405; J2704; J2710; J2765; J3010; J3475; J3480; J3490; J7030; P9045; Q9963

== ENCOUNTER 2024-06-09 14:57 | Emergency (ER) | payer BC, MEDICAID ==
[~2024-06-09] VITALS: Ht 188 cm; Wt 95.7 kg
[~2024-06-09 14:57] MED LIST changes: +ACET-1131 PO; +ASCO500C17 PO; +CITA-109 PO; +CYCL-920 PO; -DIVA250T8 PO; -FAMO-128 PO; +FERR-39 PO; +GABA300C PO; -HYDR-3686 PO; +IXEK80AU2 SQ; -LOSA25TA96 PO; -NICO-668 MM; -NICO-687 TD; +ONDA-243 PO; +PANT-47 PO; -PANT40TA54 PO; -QUET100T34 PO; +QUET300T20 PO; +SUCR1TAB PO; -SUCR1TAB34 PO; +TOPI-95 PO; -TRIA454O TOP
[2024-06-09 15:02] VITALS: BP 149/99; PULSE 84; RESP 16; TEMP 98; O2SAT 99
[2024-06-09] MEDS ORDERED: chlorhexidine gluc 4% **topical ** 120ml btl. TP ONE (15:35)
[2024-06-09] MEDS: CHLORHEXIDINE GLUCONATE 4% 15 ML topical sol TP ONE (16:23)
== END 2024-06-09 16:31 | disposition home or self-care (01) ==
LOC: ER 14:58
DX: L02.214 Cutaneous abscess of groin (principal); F32.A Depression, unspecified; G89.29 Other chronic pain; M54.9 Dorsalgia, unspecified; F15.90 Other stimulant use, unspecified, uncomplicated; Z90.49 Acquired absence of other specified parts of digestive tract; Z88.1 Allergy status to other antibiotic agents; Z88.2 Allergy status to sulfonamides; Z88.8 Allergy status to other drugs, medicaments and biological substances; Z79.899 Other long term (current) drug therapy; Z60.2 Problems related to living alone; Z72.89 Other problems related to lifestyle; Z59.00 Homelessness unspecified
CPT/HCPCS: 10060; 99282; A6266; A6258; A6449

== ENCOUNTER 2024-06-11 15:45 | Emergency (ER) | payer BC, MEDICAID | END 2024-06-11 18:12 | disposition left against medical advice (07) | LOC: ER 15:45 | DX: Z00.00 Encounter for general adult medical examination without abnormal findings (principal); Z53.21 Procedure and treatment not carried out due to patient leaving prior to being seen by health care provider ==

== ENCOUNTER 2024-06-12 07:10 | Emergency (ER) | payer BC, MEDICAID ==
[~2024-06-12] VITALS: Ht 188 cm; Wt 94.5 kg
[2024-06-12 07:19] VITALS: BP 111/84; PULSE 85; RESP 16; TEMP 98.4; O2SAT 98
== END 2024-06-12 09:27 | disposition home or self-care (01) ==
LOC: ER 07:10
DX: L02.211 Cutaneous abscess of abdominal wall (principal); G89.29 Other chronic pain; F15.90 Other stimulant use, unspecified, uncomplicated; Z88.0 Allergy status to penicillin; Z88.2 Allergy status to sulfonamides; Z79.899 Other long term (current) drug therapy; Z90.49 Acquired absence of other specified parts of digestive tract
CPT/HCPCS: 99284; A6266